=== PATIENT | male | born 1960 | race Caucasian/White ===

== ENCOUNTER 2023-07-05 02:22 | Observation (INO) | payer MEDICARE, OTHER, SELFPAY ==
[2023-07-04] VITALS (8 sets, daily range): BP systolic 112–144; BP diastolic 55–74; BMI 37.7
[2023-07-04 21:06] LABS: % Basophils 0.6 % (0-2); % Eosinophils 2.8 % (0-6); % Immature Granulocytes 0.3 % (0-0.5); % Monocytes 11.4 % (1.7-9.3); % Neutrophils 74.9 % (42.2-75.2); Absolute Basophils 0.1 10^3/uL (0-0.2); Absolute Eosinophils 0.3 10^3/uL (0-0.7); Absolute Monocytes 1.1 10^3/uL (0.1-0.6); Absolute Neutrophils 7.4 10^3/uL (1.4-6.5); Hematocrit 36.8 % (39.0-52.0); Hemoglobin 11.4 g/dL (13.0-18.0); Mean Corpuscular Hgb 25.4 pg (27.0-31.0); Mean Corpuscular Volume 82.1 fL (80.0-94.0); Mean Platelet Volume 8.7 fL (7.4-10.4); Nucleated Red Blood Cells % 0 % (-); Platelet Count 265 10^3/uL (130-400); Red Blood Cell Count 4.48 10^6/uL (4.70-6.10); Red Cell Dist. Width 14.6 % (11.5-14.5); White Blood Cell Count 9.9 10^3/uL (4.8-10.8)
[2023-07-04 21:18] LABS: ALT (SGPT) 11 U/L (0-50); AST (SGOT) 22 U/L (17-59); Albumin 4.3 g/dl (3.5-5.0); Alkaline Phosphatase 111 U/L (38-126); Blood Urea Nitrogen 13 mg/dl (9-20); Calcium 8.8 mg/dl (8.4-10.2); Carbon Dioxide 31 mmol/L (22-30); Chloride 99 mmol/L (98-107); Estimated Creatinine Clearance 85 ml/min; Glucose 99 mg/dl (70-99); Potassium 4.5 mmol/L (3.5-5.1); Sodium 134 mmol/L (135-145); Total Bilirubin 0.6 mg/dl (0.2-1.3); Total Protein 7.9 g/dl (6.3-8.2); eGFR > 60.00
[2023-07-04 21:31] LABS: Troponin I < 0.012 ng/ml
--- NOTE | 2023-07-04 22:29 | ED.GENMED ---
History of Present Illness
General
Chief Complaint: Chest Pain
Source: patient
Exam Limitations: none
Time Seen by Provider: 07/04/23 21:13
Travel History
Have you had any contact with someone who has COVID-19?: No
Do you have any symptoms of coronavirus? Fever > 100 degrees, chills, cough, shortness of breath, sore throat, loss of taste or smell, muscle aches, or headache?: Yes
Symptoms:: sob
History of Present Illness
History of Present Illness:
63-year-old male who presents after having chest pain around 2 or 3:00. Patient states he was shoveling snow. The pain was coming and going for several hours. He then went out to dinner with his daughter and when he came home did not feel well
and started vomiting. Daughter called 911. Patient states now feels better. He was given aspirin, nitroglycerin and Zofran by EMS. The pain did radiate to his back. He was feel little bit short of breath as well. He does continue to smoke. He
does have a history of coronary disease as well as ventricular tachycardia. No fevers. No palpitations.
Past History
Past History
ED Past Medical History: Arrthythmia (A-fib, ventricular tachycardia), CAD, COPD, GERD, HTN, Hypercholesterolemia, NIDDM, [place] (2008, 2015) and Other (Migraine headaches, tobacco abuse, ventricular tachycardia)
ED Past Surgical History: Cardiac (PTCA with stent to the LAD 2007, PACER) and Orthopedic (Right foot surgery 2016)
Patient has exhibited threatening behavior?: No
Social History
Tobacco: Smoker
Alcohol: None
Drug: Narcotics (inconsistent UDS (+)oxycodone 2014)
Personal:
Living: with family
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
Family History
Family History: Hypertension and Early CAD
Phy Exam
Physical Exam
Physical Exam:
CONSTITUTIONAL Patient alert and oriented to person, place and time. Obese. Vital signs reviewed.
HEAD atraumatic, normocephalic.
EYES eyelids normal to inspection, Pupils equally round and reactive to light, Extraocular muscles intact, Conjunctiva normal, Sclera normal.
NECK normal range of motion, Trachea midline, no jugular venous distention.
RESPIRATORY CHEST No respiratory distress noted, Chest expansion equal, wheezing bilaterally.
CARDIOVASCULAR regular rate and rhythm, Heart sounds normal.
ABDOMEN abdomen nontender, Bowel sounds normal. No distention.
BACK normal inspection, no obvious deformities
UPPER EXTREMITY range of motion normal, Motor strength normal, no cyanosis, no edema. Nicotine stains left hand
LOWER EXTREMITY range of motion normal, Motor strength normal, no cyanosis, no edema.
NEURO Speech normal, No focal motor deficits, Mikki coma scale 15, Memory normal, Cranial Nerves intact to screening exam.
SKIN skin warm, dry, and normal in color.
PSYCHIATRIC patient oriented to person place and time, Normal affect.
Scores
Heart Score for Chest Pain Patients
STEMI patient?: No
History: Moderately Suspicious
ECG: Nonspecific Repolarization
Age: >45 - <65 years
Risk Factors: >/= 3 Risk Factors or History of CAD
Troponin: </= Normal Limit
Heart Score for Chest Pain Patients: 5
Heart Score Risk: 20.3% MACE over next 6 weeks
Course
Orders/Labs/Results
Orders:
Orders
07/04/23 20:38
Electrocardiogram (*1) Urgent
Reason for Study: Chest Pain
Cardiac Monitoring- Treatment ONCE
EKG- Treatment ONCE
IV Insert/Care/Rem.- Treatment PRN
O2 Therapy [RESP] Urgent
Titrate/Wean O2 to maintain O2 sat greater than (%): 90
Special Instructions: Maintain sats >/=90%
Pulse Ox/spot Check [RESP] Urgent
Quantity: 1
Special Instructions: ON ROOM AIR
07/04/23 20:50
Complete Blood Count/With Diff Urgent
Comprehensive Metabolic Panel Urgent
Troponin I Urgent
07/04/23 21:57
CXR2 [CR Chest - 2 Views ] Urgent
Comment:
Reason For Exam: SOB
07/04/23 22:34
Electrocardiogram (*1) Stat
Reason for Study: Other
Other Reason for Exam: chest pain
EKG- Treatment ONCE
07/04/23 23:01
CT Angio Chest W/Wo Iv Contast [CT Chest Angio W/wo Iv Contras] Stat
Comment:
Reason For Exam: cp, back pain, r/o dissection
07/05/23 00:21
Dexamethasone Sod Phosphate [Decadron] 10 mg IV NOW STA
07/05/23 00:32
Troponin I Urgent
07/05/23 00:48
Ipratropium/Albuterol Sulfate [Duoneb] 3 ml INH R NOW STA
07/05/23 02:03
Admit/Transfer Patient As Directed
Co-Sign Provider:
Level of Care: Observation services
Assign to:: Telemetry
Physician / Group: [email or web address]
Diagnosis: exertional CP eval for ACS
Reason for Telemetry: Chest Pain syndromes
Date to Stop Telemetry: 07/07/23
Time to Stop Telemetry: 11:00
Reason for Hospitalization: exertional CP eval for ACS
Expected length of stay greater than two midnights?: Yes
07/05/23 02:06
Code Status As Directed
Resuscitation Status: Full Code
07/05/23 03:19
Electrocardiogram (*1) Q6H
Reason for Study: Chest Pain
Comment: at admission and Q3H for total of 3, to be done with each troponin
Albuterol [ProAIR HFA INHALER] 2 puff INH R Q4HPRN PRN
Dextrose 50%-Water [Dextrose 50% Syringe] 12.5 grams IV [id number] PRN
Glucagon [GlucaGen] 1 mg IM PRN PRN
Nitroglycerin Sublingual [Nitrostat (Sublingual)] 0.4 mg SL [id number] PRN
07/05/23 03:19
CARDIOLOGY CONSULT Routine
Consulting Provider: Elida Alejandra
Was physician already notified: No
Reason for consult: exertional CP eval for ACS
Consult Notification Routine
Specialty to Notify: Cardiology
Activity As Directed
Activity Level: With Assistance
Bedside Glucose Monitoring As Directed
Frequency: AC&HS
Comment: Change to q6h if pt on TPN, tube feeding or not eating
INT (Intravenous Needle Therapy) As Directed
Comment: maintain peripheral IV access
Intake/ Output As Directed
Frequency: Per unit guidelines
Vital Signs As Directed
Frequency: q4h
Weight As Directed
Frequency: Daily
07/05/23 04:29
Cardiovascular Evaluation IN AM
Complete Blood Count/No Diff IN AM
Comprehensive Metabolic Panel IN AM
Glycohemoglobin (HgbA1c) Routine
Troponin I Q3H
Comment: at admit & Q3H for 3 total including ED draws, obtain ECG with each level
07/05/23 Breakfast
Cholesterol Lowering
At Your Request: Limited Participation
Cholesterol Lowering: Sodium, 2 Gram
07/05/23 06:08
Troponin I Q3H
Comment: at admit & Q3H for 3 total including ED draws, obtain ECG with each level
07/05/23 07:30
Insulin Aspart Corrective Low [Novolog Flexpen-Low Resistance] See Protocol SC AC
07/05/23 08:00
Apixaban [Eliquis] 5 mg PO BID
Aspirin Chewable [Low Strength Aspirin] 81 mg PO DAILY
Atorvastatin [Lipitor] 80 mg PO DAILY
Budesonide/Formoterol 80/4.5 [Symbicort 80/4.5 Mcg Inhaler] 2 puff INH R BID
Candesartan Cilexetil [Atacand] 32 mg PO DAILY
Carvedilol [Coreg] 25 mg PO BID
Empagliflozin [Jardiance] 10 mg PO DAILY
Furosemide [Lasix] 20 mg PO DAILY
Metformin Extended Release [Glucophage Xr Extended Release] 1,000 mg PO BID@0800,1700
Minoxidil [Loniten] 10 mg PO BID
Pantoprazole [Protonix] 40 mg PO DAILY
Sotalol [Betapace] 80 mg PO BID
omeprazole 40 mg PO DAILY
07/05/23 09:19
Electrocardiogram (*1) Q6H
Reason for Study: Chest Pain
Comment: at admission and Q3H for total of 3, to be done with each troponin
Troponin I Q3H
Comment: at admit & Q3H for 3 total including ED draws, obtain ECG with each level
07/05/23 15:19
Electrocardiogram (*1) Q6H
Reason for Study: Chest Pain
Comment: at admission and Q3H for total of 3, to be done with each troponin
07/07/23 11:00
DC Protocol for Telemetry ONCE
Abnormal Lab Results
07/04/23
20:50
RBC 4.48 L 10^6/uL
(4.70-6.10)
Hgb 11.4 L g/dL
(13.0-18.0)
Hct 36.8 L %
(39.0-52.0)
MCH 25.4 L pg
(27.0-31.0)
MCHC 31.0 L g/dL
(33.0-37.0)
RDW 14.6 H %
(11.5-14.5)
Absolute Neuts (auto) 7.4 H 10^3/uL
(1.4-6.5)
Absolute Lymphs (auto) 1.0 L 10^3/uL
(1.2-3.4)
Absolute Monos (auto) 1.1 H 10^3/uL
(0.1-0.6)
Lymphocytes % 10.0 L %
(20.5-51.1)
Monocytes % 11.4 H %
(1.7-9.3)
Sodium 134 L mmol/L
(135-145)
Carbon Dioxide 31 H mmol/L
(22-30)
07/04/23 20:50
07/04/23 20:50
Vital Signs
Initial and Last Documented VS:
Initial Vital Signs
Pulse Resp Pulse Ox
64 15 95
07/04/23 20:40 07/04/23 20:40 07/04/23 20:40
Last Documented Vital Signs
Temp Pulse Resp BP Pulse Ox
98 F 60 18 155/66 92
07/05/23 03:20 07/05/23 03:20 07/05/23 03:20 07/05/23 03:20 07/05/23 03:20
MDM/Problems Addressed
MDM/Problems Addressed:
Chest pain, vomiting, tobacco abuse, reactive airway disease
*Radiology
Radiology exam reviewed: all reviewed NAD by ED Provider (Chest x-ray unremarkable)
*Pulse Oximetry
Patient hypoxic: no
*EKG
Interpreted by ED Provider?: Yes
Interpretation: abnormal
Rate: normal
Rhythm: sinus and PVC's
[place]: normal axis
Ischemia: no ischemia
*Chaplain Resident Interpretation
Rate: normal
Interpretation: normal
Rhythm: sinus
*Critical Care Note
Total Time (30-74mins, 75-104mins- exclusive of procedures): 30 minutes
Data Reviewed
Review of Other/Old Records Reveals: Progress Notes (Cardiology progress note from April 2022) and Discharge Summary (From April 2022)
Source: patient
Prescriptions/Medications Considered But Not Given:
Consider nitroglycerin but symptoms have not resolved
Patient Management
Discussion with other providers: Hospitalist
Escalation/DeEscalation of care consider admission/obs:
63-year-old male who presents with chest pain. Pain did radiate back and aortic dissection study negative. Given his extensive coronary history admitted for cardiac evaluation. In addition, patient is wheezing and I do suspect COPD exacerbation
as he is a longtime smoker. Bronchodilators with caution to avoid tachycardia in light of his recent chest pain. Admit
ED Attending Note
-
Portions of this chart may have been created with voice recognition software.� Occasional wrong word or��sound alike� substitutions may have occurred due to the inherent limitations of voice recognition software.
Discharge Plan
Departure
Patient Disposition: Admit
Date of Disposition: 07/05/23
Time of Disposition: 00:47
Admit to: Telemetry
Presentation/result/management discussed w/ accepting MD/DO: Hospitalist
Discharge Problem:
Chest pain, COPD exacerbation
Interventions
Interventions:
*Risk Screen - Suicide Last Done: 07/04/23 20:40
*General Assessment Last Done: 07/04/23 20:40
*Neglect/Abuse Screening Last Done: 07/04/23 20:40
*ED COVID-19 Vaccine History Last Done: 07/05/23 03:26
*Nursing Disposition Last Done: 07/05/23 03:20
ED- Cardiac Assessment Last Done: 07/04/23 21:30
Discharge Date and Time
Discharge Date/Time: 07/05/23 03:20
[2023-07-05] VITALS (8 sets, daily range): BP systolic 125–167; BP diastolic 51–73; BMI 35.9
[2023-07-05] MEDS: DECADRON 10 MG IV (00:33)
[2023-07-05] MEDS: DUONEB 3 ML INH ×3 (00:56→19:39)
[2023-07-05 01:12] LABS: Troponin I < 0.012 ng/ml
--- NOTE | 2023-07-05 01:59 | HPS.HSE ---
Family Physician
-
Family Physician: [place]
Chief Complaint
-
CP
History of Present Illness
61M current smoker, diabetic HX COPD, HTN, GERD, HLD, [place] 2007 2014 chronic HFpEF, CAD s/p stent, HX VF arrest, AICD pw chest pain while he was shoveling snow. The pain was coming and going for several hours. He then went out to dinner with his
daughter and when he came home did not feel well and started vomiting. Daughter called 911. Patient states now feels better. He was given aspirin, nitroglycerin and Zofran by EMS. The pain did radiate to his back. He was feel little bit short
of breath as well.
Medical History
Past Medical History
Past Medical History: Reports Other
Additional Past Medical History:
Arrthythmia (A-fib, ventricular tachycardia), CAD, COPD, GERD, HTN, Hypercholesterolemia, NIDDM, [place] (2007, 2014) and Other (Migraine headaches, tobacco abuse, ventricular tachycardia)
Past Surgical History: Reports Other
Additional Past Surgical History:
Cardiac (PTCA with stent to the LAD 2007, PACER) and Orthopedic (Right foot surgery 2016)
Social History
Tobacco: Smoker
Alcohol: None
Drug: None
Family History
Family History: Not pertinent
Allergies / Home Medications
Allergies reflects when Allergies were last updated in [facility].
Home Medications with original date entered in [facility]
Allergy/Medication List:
Allergies
Allergy/AdvReac Type Severity Reaction Status Date / Time
diphenhydramine Allergy hyperactivi Verified 07/04/23 20:46
[Diphenhydramine] ty
sumatriptan Allergy PALPITATIONS, Verified 07/04/23 20:46
HTN
Home Medications
albuterol sulfate 90 mcg/actuation aerosol inhaler (Ventolin HFA) 2 puff inhalation Q4HPRN PRN sob 09/28/14
carvedilol 25 mg tablet 25 mg PO BID ##60 09/30/14
furosemide 20 mg tablet 20 mg PO DAILY 06/11/17
nitroglycerin 0.4 mg sublingual tablet 0.4 mg sublingual [id number] PRN chest pain #25 tabs 06/12/17
omeprazole 40 mg capsule,delayed release 40 mg PO DAILY 06/12/17
atorvastatin 80 mg tablet 80 mg PO DAILY 05/15/22
candesartan 16 mg tablet 32 mg PO DAILY 05/15/22
metformin 500 mg tablet,extended release 24 hr 1,000 mg PO BID@0800,1700 05/15/22
apixaban 5 mg tablet (Eliquis) 5 mg PO BID 30 days #60 tabs 05/17/22
empagliflozin 10 mg tablet (Jardiance) 10 mg PO DAILY 30 days #30 tabs 05/17/22
minoxidil 10 mg tablet 10 mg PO BID 06/06/22
fluticasone fur. 100 mcg-umeclid 62.5 mcg-vilant 25 mcg inhalat.powder (Trelegy Ellipta) 1 inh inhalation DAILY 07/04/23
omeprazole 40 mg capsule,delayed release 40 mg PO DAILY 07/04/23
sotalol 80 mg tablet 80 mg PO BID 07/04/23
Review of Systems
-
Constitutional: Reports No Symptoms
EENT: Reports No Symptoms
Respiratory: Reports No Symptoms
Cardiac: Reports Chest Pain
Abdomen/GI: Reports No Symptoms
: Reports No Symptoms
Musculoskeletal: Reports No Symptoms
Skin: Reports No Symptoms
Neurological: Reports No Symptoms
Endocrine: Reports No Symptoms
Hematologic/Lymphatic: Reports No Symptoms
Psych: Reports No Symptoms
Physical Exam
Vital Signs
Vital Signs
Pulse Resp BP Pulse Ox
59 14 137/74 100
07/04/23 22:00 07/04/23 22:00 07/04/23 22:40 07/04/23 22:00
Physical Exam
General: Other (see below )
Laboratory Results
-
07/04/23 20:50
07/04/23 20:50
Laboratory Results
Total Bilirubin 0.6 mg/dl (0.2-1.3) 07/04/23 20:50
AST 22 U/L (17-59) 07/04/23 20:50
ALT 11 U/L (0-50) 07/04/23 20:50
Alkaline Phosphatase 111 U/L (38-126) 07/04/23 20:50
Troponin I < 0.012 ng/ml 07/05/23 00:32
Data Reviewed
-
CT Scan: Report Reviewed by me
Lab Data: Labs Reviewed by me
Old Records: Reviewed
Impression/Plan
-
Reviewed VS: noted HR low 60s. Normotensive
PE
Gen: obese
HEENT: anicteric
Neck: supple
Lungs: b/l wheeze noted
Cor: RRR S1 S2
Abdomen: soft NT NG NRT
MARKETING CONSULTANT: AAO3
MS: no peripheral edema
Psych: normal affect.
Data
WCC 9.9
Hgb 11.4 - baseline hi 11s
Na 134
CO2 31
Cr 1.1 eGFR > 60
nl LFTs
NEG TPNI
EKG report
NORMAL SINUS RHYTHM
NORMAL ECG
WHEN COMPARED WITH ECG OF 04-JUL-2023 20:52,
PREMATURE VENTRICULAR COMPLEXES ARE NO LONGER PRESENT
CTA chest
NEG for central PE
No focal air space consolidation
Last hospitalist admission: 05/15/22 - 05/18 23
P Dxs
AF with RVR
VF
Acute on chr HFpEF
ASSESSMENT & PLAN
Exertional CP - Eval for ACS / [place]
Currently CP free- s/pASA nitroglycerin and Zofran by EMS.
Extensive Card HX est ASCVD9 [place], CAD with stents
HX Cath with stable CAD from 2018, LAD stent still patent
HLD
- cont ASA
- cont hi intensity Atorvastatin
- trend TPNI
- CBC card consult
HX chronic HFpEF - with HX elevated LVEDP/YOUNG
- on DESKTOP ARCHITECT SGLT2-I - Empagliflozin 10mg daily
- cont DESKTOP ARCHITECT Frusemide PO 20mg daily
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 Each episode terminated with 1 ICD shock but he had 10 episodes over about 6 min.
HX out of hospital arrest in 2018 when ICD placed
- on sotalol
- on Carvedilol
- on Candesartan
HX Prox AFib- In NSR
HX [id number] at least 4 (heart failure, HTN, DM, Vascular disease)
- cont. Eliquis
- on Sotalol
HX COPD
- on Trelegy Ellipta
DMT2
- on Metformin and SGLT2-I (Empagliflozin )
- add ISS low
essential HTN on Carvedilol
Hx migraines
Heavy active smoker, told to quit
Class II Morbid obesity, BMI 39.9
DVT Px: on chr Eliquis
Code: Full
IP TLM
[2023-07-05 04:37] LABS: Hematocrit 37.9 % (39.0-52.0); Hemoglobin 11.9 g/dL (13.0-18.0); Mean Corp Hgb Conc. 31.4 g/dL (33.0-37.0); Mean Corpuscular Hgb 25.8 pg (27.0-31.0); Mean Platelet Volume 8.8 fL (7.4-10.4); Platelet Count 260 10^3/uL (130-400); Red Blood Cell Count 4.62 10^6/uL (4.70-6.10); Red Cell Dist. Width 14.6 % (11.5-14.5); White Blood Cell Count 8.9 10^3/uL (4.8-10.8)
[2023-07-05] MEDS: FIORICET 1 TAB PO ×2 (04:59→21:34)
[2023-07-05] MEDS: TYLENOL #3 1 TABLET PO (05:00)
--- NOTE | 2023-07-05 05:00 | PTCARENOTE ---
0330 Received patient from ED via stretcher. Patient ambulated from stretcher to bed independently. Oriented patient to room and placed call ibarra within reach. No complaints of chest pain. Patient reports 5/10 migraine headache. COMMUNICATIONS PROFESSIONAL made aware,
fioricet and tylenol #3 ordered and given to patient.
[2023-07-05 05:03] LABS: ALT (SGPT) 12 U/L (0-50); AST (SGOT) 19 U/L (17-59); Albumin 3.9 g/dl (3.5-5.0); Alkaline Phosphatase 110 U/L (38-126); Blood Urea Nitrogen 15 mg/dl (9-20); Carbon Dioxide 29 mmol/L (22-30); Chloride 97 mmol/L (98-107); Estimated Creatinine Clearance 83 ml/min; Glucose 165 mg/dl (70-99); HDL Cholesterol 28 mg/dl; LDL Cholesterol, Calculated 31 mg/dl; Potassium 5.1 mmol/L (3.5-5.1); Sodium 134 mmol/L (135-145); Total Bilirubin 0.6 mg/dl (0.2-1.3); Total Cholesterol 93 mg/dl (50-199); Total Protein 7.7 g/dl (6.3-8.2); Triglyceride 171 mg/dl (10-149); Very Low Density Lipoprotein 34 mg/dl (0-30); eGFR > 60.00
[2023-07-05 05:13] LABS: Troponin I < 0.012 ng/ml
[2023-07-05 06:41] LABS: Troponin I < 0.012 ng/ml
[2023-07-05 07:20] LABS: Glucose - Point of Care 177 mg/dl (70-99)
[2023-07-05] MEDS: NOVOLOG FLEXPEN-LOW RESISTANCE 1 UNITS SC ×2 (09:28→12:23)
[2023-07-05] MEDS: BETAPACE 80 MG PO ×2 (09:29→21:08)
[2023-07-05] MEDS: SYMBICORT 80/4.5 MCG INHALER INH (09:29)
[2023-07-05] MEDS: ATACAND 32 MG PO (09:29)
[2023-07-05] MEDS: PROTONIX 40 MG PO (09:29)
[2023-07-05] MEDS: COREG 25 MG PO ×2 (09:30→21:09)
[2023-07-05] MEDS: GLUCOPHAGE XR EXTENDED RELEASE 1000 MG PO ×2 (09:30→17:18)
[2023-07-05] MEDS: LIPITOR 80 MG PO (09:30)
[2023-07-05] MEDS: JARDIANCE 10 MG PO (09:30)
[2023-07-05] MEDS: LONITEN 10 MG PO ×2 (09:31→21:09)
[2023-07-05] MEDS: LOW STRENGTH ASPIRIN 81 MG PO (09:31)
[2023-07-05] MEDS: LASIX 20 MG PO (09:31)
[2023-07-05] MEDS: ELIQUIS 5 MG PO ×2 (09:31→21:09)
[2023-07-05 10:01] LABS: Troponin I < 0.012 ng/ml
[2023-07-05 10:26] LABS: Glycohemoglobin (HgbA1c) 6.7 % (4.0-5.6)
--- NOTE | 2023-07-05 11:29 | CON.CAR ---
Consultation
Consultation Request
Date/Time Consultation Requested: 07/05/23
Date/Time Consultation Performed: 07/05/23
Requesting Provider: Dr Escobar
Performing Provider: Dr Ratliff (primary nut tightener Dr Ventura(to become Gianni)
Reason for Consultation: chest pain
Medical History
-
Chief Complaint: chest pain
History of Present Illness:
63-year-old male with CAD, hypertension, resolved cardiomyopathy now EF 60 to 65%, ventricular tachycardia s/p [employer] ICD, Recurrent VF in initially managed with Amiodarone then transitioned to Sotalol given COPD, paroxysmal atrial
fibrillation on Eliquis, obesity, and ongoing smoking.Today his daughter is at the bedside and adds to the history. Yesterday morning he cleaned off his car and did a little bit of shoveling. With this he reports increased shortness of breath, but
no real chest pain. He then went to dinner with his daughter and on the way home felt increasing shortness of breath. This was associated with wheezing. At time he had intermittent sharp chest pain radiating to the back. This was not reminiscent
of prior angina. Given his history he never knows when he should be concerned. He sought care. In the ED he had a CTA showing no evidence of dissection or PE. He had troponins that have been cycled 5 times in the last 12 to 24 hours that are all
negative. His weight is stable from his last outpatient visit on the fifth with Dr. Ventura. He has no orthopnea or PND. No lower extremity swelling.
Past Medical History
Past Medical History: Arrhythmias (VT, FIT, A-fib Status post ICD), CAD (PCI to LAD), CHF, COPD, HTN and Hypercholesterolemia
Social History
Tobacco: Smoker
Living: With Family
Family History
Family History: Reviewed & Not Pertinent
Allergies / Home Medications
Allergy/AdvReac Type Severity Reaction Status Date / Time
diphenhydramine Allergy hyperactivi Verified 07/04/23 20:46
[Diphenhydramine] ty
sumatriptan Allergy PALPITATIONS, Verified 07/04/23 20:46
HTN
Medication Instructions Recorded Confirmed Type
albuterol sulfate 90 mcg/actuation 2 puff inhalation Q4HPRN PRN sob 09/28/14 07/04/23 History
aerosol inhaler (Ventolin HFA)
carvedilol 25 mg tablet 25 mg PO BID ##60 09/30/14 07/04/23 Rx
furosemide 20 mg tablet 20 mg PO DAILY 06/11/17 07/04/23 History
nitroglycerin 0.4 mg sublingual 0.4 mg sublingual [id number] PRN 06/12/17 07/04/23 Rx
tablet chest pain #25 tabs
omeprazole 40 mg capsule,delayed 40 mg PO DAILY 06/12/17 07/04/23 History
release
atorvastatin 80 mg tablet 80 mg PO DAILY 05/15/22 07/04/23 History
candesartan 16 mg tablet 32 mg PO DAILY 05/15/22 07/04/23 History
metformin 500 mg tablet,extended 1,000 mg PO BID@0800,1700 05/15/22 07/04/23 History
release 24 hr
apixaban 5 mg tablet (Eliquis) 5 mg PO BID 30 days #60 tabs 05/17/22 07/04/23 Rx
minoxidil 10 mg tablet 20 mg PO BID 06/06/22 07/05/23 History
fluticasone fur. 100 mcg-umeclid 1 inh inhalation DAILY 07/04/23 07/04/23 History
62.5 mcg-vilant 25 mcg
inhalat.powder (Trelegy Ellipta)
omeprazole 40 mg capsule,delayed 40 mg PO DAILY 07/04/23 07/04/23 History
release
sotalol 80 mg tablet 80 mg PO BID 07/04/23 07/04/23 History
butalbital 50 mg-acetaminophen 325 2 cap PO Q4H PRN migraine 07/05/23 07/05/23 History
mg-caffeine 40 mg-codeine 30 mg cap
empagliflozin 25 mg tablet 25 mg PO DAILY 07/05/23 07/05/23 History
(Jardiance)
Review of Systems
-
All other systems: Negative unless noted
Physical Exam
Vital Signs
Temp Pulse Resp BP Pulse Ox
97.6 F 64 18 167/73 96
07/05/23 11:08 07/05/23 11:08 07/05/23 11:08 07/05/23 11:08 07/05/23 11:08
Lab Results
07/05/23 04:29
07/05/23 04:29
Troponin I < 0.012 ng/ml 07/05/23 09:23
Physical Exam
General: Well Developed, Well Nourished and No Apparent Distress
Respiratory: Wheezes (faint Diffuse end expiratory ), Crackles (None), Rhonchi (None) and Non Labored Respirations
Cardiac: S1/S2, Regular Rhythm, Murmur (None), Rub (None) and Peripheral Edema (None)
GI: Soft
Musculoskeletal: No Clubbing, No Cyanosis and No Edema
Neuro: AO x 3
Impression / Plan
-
Impression:63-year-old male with a history of CAD, PCI to the LAD, VT/V-fib status post ICD, ongoing smoking and COPD presents with increasing shortness of breath and wheezing yesterday with a sharp chest pain rating to the back at times.
Chest pain:
-Trop negative x5
-CP atypical
-do not suspect cardiac etiology
COPD:
-increased sob and wheezing with increased neb use, sx likely attributable to COPD
CAD:
-Stable continue current medications
- Cath 05/08/2022 stable CAD from 2018, LAD stent still patent
h/o VT/VF arrest
-continue sotalol
-ICD inplace
HFpEF: chronic
-Euvolemic
-wt stable from last op visit on 06/22/[address] Ventura
-Continue current medications
PAF:
-In NSR
-on Sotalol
- [id number] at least 4 (heart failure, HTN, DM, Vascular disease)
Smoker: needs to quit and advised to do so
DM
HTN chronic
Hx migraines
LVH with asymmetric septal hypertrophy but no LVOT gradient noted
Morbid obesity, BMI 35.9
Data
CTA 07/05/23:
CONCLUSION:
1. � Technically limited examination. No central pulmonary embolism.
2. � No aortic dissection or aneurysm.
3. � Borderline cardiomegaly.
4. � No pleural or pericardial effusion.
5. � Increased bilateral hilar and mediastinal adenopathy. While this could be due to chronic airway inflammation or infection, the differential includes the possibility of sarcoidosis, neoplasm, benign or malignant, short-term follow-up is
recommended.
6. � Circumferential thickening of the distal esophagus. Follow-up with direct visualization or esophagram may be helpful to fully evaluate.
7. � Possible duodenal diverticulum or lipoma. Incompletely imaged.
CATH 05/15/22:
HEMODYNAMIC DATA
AO: 146/69
LV: 146/21
-
LEFT VENTRICULOGRAPHY: Akinesis of the inferobasal with otherwise normal wall motion.� An ejection fraction could not be calculated due to ventricular ectopy.� Of note the inferobasal akinetic segment is unchanged in appearance going back to the
2018 study
-
CORONARY ANGIOGRAPHY
Dominance: Left
Left Main: Normal
LAD: Widely patent proximal to mid LAD stent.� The major diagonal branch has 40% ostial stenosis unchanged in appearance compared with the prior study from 2018.� The remainder of the LAD system has mild luminal irregularities
Circumflex: The circumflex is dominant with 20-30% proximal stenosis.� The distal circumflex is occluded past the takeoff of the huge OM1 and small OM 2.� OM 2 has diffuse and severe disease..� Left to left collaterals faintly fill the OM 3, small
LPL, and small L PDA vessels.� The appearance of the circumflex is unchanged compared with the prior study from 2018.
RCA: Nondominant vessel with diffuse mild disease.
TTE: 05.15.22:
CONCLUSIONS
�Normal biventricular size and systolic function without regional wall motion
�abnormality. Estimated LVEF 60-65%.
�Asymmetric septal hypertrophy: IVS 1.5 cm, LVPW 1.1 cm.
�Stage II diastolic dysfunction suggestive of abnormal relaxation and increased
�filling pressures.
�Mild aortic stenosis.
�Mild tricuspid regurgitation. Moderately elevated PASP. Estimated pulmonary
�artery pressure of 48 mmHg.
�Compared to 10/15/18: no significant change.
Data Reviewed
-
EKG: Tracing Personally Visualized and interpreted (Sinus bardycardia with NS IVCD, QTC [address]ressions anterolaterally improved. )
Labs: Discussed with Physician (Dr Escobar don't suspect acute cardiac issue, will sign off)
[2023-07-05 11:49] LABS: Glucose - Point of Care 171 mg/dl (70-99)
--- NOTE | 2023-07-05 12:07 | W.PN.UPDATE ---
Addendum entered and electronically signed by Dinesh Escobar MD 07/05/23 12:41:
Discussed with cardiology. noncardiac chest pain chest and discomfort. In setting of active tobacco abuse and hypoxemia will start patient on steroids and DuoNebs
Original Note:
Update Note
Progress Note Update
Seen and examined. Overnight physician. Currently patient denies any chest pain. States chest pain started after shoveling snow. States he continues to smoke. Smokes 1-1/2 pack/day sometimes less. Currently chest pain-free. Denies cough.
General in no acute distress
Cardiac S1-S2
Pulmonary decreased breath sounds, no severe wheezing
Abdomen positive bowel sounds nontender nondistended
Extremities no edema
Angina likely unstable
CAD status post stents
Currently CP free- s/pASA� nitroglycerin and Zofran by EMS.
HLD
-cont ASA
-cont hi intensity Atorvastatin
-Fortunately troponin has remained negative/flat
-Cardiac catheterization 05/08
-Check ECHO in am.
-CBC card consulted�
chronic HFpEF - with HX elevated LVEDP/YOUNG
- on CARTOGRAPHY/MAPPING TECHNICIAN SGLT2-I - Empagliflozin 10mg daily
- cont CARTOGRAPHY/MAPPING TECHNICIAN Frusemide PO 20mg daily
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 Each episode terminated with 1 ICD shock but he had 10 episodes over about 6 min.
HX out of hospital arrest in 2018 when ICD placed
- on� sotalol
- on Carvedilol
- on Candesartan
Paroxysmal AFib- In� NSR
HX [id number] at least 4 (heart failure, HTN, DM, Vascular disease)
- cont. Eliquis
- on Sotalol
COPD
- on Trelegy Ellipta
DMT2
- on Metformin and� SGLT2-I (Empagliflozin )
- add ISS low
essential HTN on Carvedilol
Hx migraines
Active tobacco abuse
Refused patch. Does not want to quit. Counseled on cessation.
Class II Morbid obesity, BMI 39.9
DVT Px: on chr Eliquis
Code: Full
[2023-07-05] MEDS: DECADRON 6 MG IV (13:39)
[2023-07-05 16:53] LABS: Glucose - Point of Care 254 mg/dl (70-99)
[2023-07-05] MEDS: NOVOLOG FLEXPEN-LOW RESISTANCE 3 UNITS SC (17:19)
[2023-07-05] MEDS: SYMBICORT 80/4.5 MCG INHALER 2 PUFF INH (19:40)
[2023-07-05 21:21] LABS: Glucose - Point of Care 174 mg/dl (70-99)
[2023-07-06] MEDS: DECADRON 6 MG IV ×2 (01:14→12:07)
[2023-07-06 03:10] VITALS: BP 143/62
[2023-07-06] MEDS: FIORICET 1 TAB PO ×2 (03:34→09:46)
[2023-07-06 06:00] VITALS: BMI 36.5
--- NOTE | 2023-07-06 06:40 | PTCARENOTE ---
Patient with bradycardia overnight, HR ranging from 30s-50s. Patient resting comfortably, no complaints. GENERAL PASSENGER AGENT made aware, no new orders at this time.
[2023-07-06 07:10] VITALS: BP 155/65
[2023-07-06 07:24] LABS: Glucose - Point of Care 181 mg/dl (70-99)
[2023-07-06] MEDS: DUONEB 3 ML INH ×2 (07:28→13:41)
[2023-07-06] MEDS: SYMBICORT 80/4.5 MCG INHALER 2 PUFF INH (07:28)
[2023-07-06 08:39] LABS: % Basophils 0.2 % (0-2); % Immature Granulocytes 0.9 % (0-0.5); % Lymphocytes 12.9 % (20.5-51.1); % Monocytes 6.2 % (1.7-9.3); % Neutrophils 79.8 % (42.2-75.2); Absolute Lymphocytes 0.6 10^3/uL (1.2-3.4); Absolute Monocytes 0.3 10^3/uL (0.1-0.6); Absolute Neutrophils 3.5 10^3/uL (1.4-6.5); Hematocrit 34.1 % (39.0-52.0); Hemoglobin 10.7 g/dL (13.0-18.0); Mean Corp Hgb Conc. 31.4 g/dL (33.0-37.0); Mean Corpuscular Hgb 25.1 pg (27.0-31.0); Mean Platelet Volume 9.6 fL (7.4-10.4); Nucleated Red Blood Cells % 0 % (-); Platelet Count 274 10^3/uL (130-400); Red Blood Cell Count 4.26 10^6/uL (4.70-6.10); Red Cell Dist. Width 14.6 % (11.5-14.5); White Blood Cell Count 4.3 10^3/uL (4.8-10.8)
[2023-07-06 09:19] LABS: Blood Urea Nitrogen 20 mg/dl (9-20); Calcium 8.9 mg/dl (8.4-10.2); Carbon Dioxide 26 mmol/L (22-30); Chloride 94 mmol/L (98-107); Estimated Creatinine Clearance 102 ml/min; Glucose 191 mg/dl (70-99); Potassium 4.9 mmol/L (3.5-5.1); Sodium 131 mmol/L (135-145); eGFR > 60.00
--- NOTE | 2023-07-06 09:30 | PTCARENOTE ---
HR currently 57 S.Randy. Dropping to 39 overnight. Confirmed with cardiology administration of all cardiac medications is appropriate.
--- NOTE | 2023-07-06 09:33 | W.PN.HOSP.TC ---
Addendum entered and electronically signed by Yasmani Torres DO 07/06/23 13:53:
Ambulatory pulse ox over 88% on room air. Stable for discharge. Outpatient follow-up recommended.
Original Note:
Today's Communication/Plan
-
Ambulatory pulse ox on room air
Possible discharge
Assessment / Plan
Assessment / Plan
Gen-AAOx3, NAD
HEENT-NC, AT, anicteric, clear oral mm
Neck-supple
CV-reg, no M, +S1/S2
Lungs-clear B/L
Abd-soft, NT, ND
Ext-no edema
Musculoskeletal-no cyanosis, clubbing
Skin-warm and dry
Neuro-grossly non-focal
Psych-calm, cooperative
Acute hypoxic respiratory insufficiency -due to acute COPD exacerbation. Oxygenation improved, now on room air.
Acute COPD exacerbation -improving. Check walking pulse ox on room air. Patient requesting discharge. Continue inhalers, discharge on steroids.
Atypical chest pain -troponins negative. Suspect noncardiac chest pain.
Hyponatremia -sodium 131 today. Fluid restriction.
Hyperlipidemia -continue atorvastatin.
DM2 with hyperglycemia -glucose 191 this morning. Hemoglobin A1c 6.7%. At home he is on Jardiance, metformin.
Paroxysmal atrial fibrillation -continue Eliquis, sotalol.
History of V-fib arrest -has ICD.
Essential hypertension
tobacco dependence
Obesity due to excess calories
Full code
Dispo -possible discharge after ambulatory pulse ox on room air. Outpatient follow-up. He does not have a java programmer, will refer to pulmonary here in [place].
Anticipated Discharge: Today
Subjective/Interval History
-
Date of Service: July 06, 2023
Patient seen and examined. Feeling better. Denies shortness of breath.
Objective Data
-
Labs:
Laboratory Results
07/06/23
07:15
WBC 4.3 L
Hgb 10.7 L
Hct 34.1 L
Plt Count 274
Sodium 131 L
Potassium 4.9
Chloride 94 L
Carbon Dioxide 26
BUN 20
Creatinine 0.9
Glucose 191 H
Calcium 8.9
Vital Signs:
Vital Signs
Temp Pulse Resp BP Pulse Ox
97.5 F 48 18 155/65 93
07/06/23 07:10 07/06/23 07:31 07/06/23 07:31 07/06/23 07:10 07/06/23 08:04
I&O
07/05/23 07/06/23 07/07/23
06:59 06:59 06:59
Intake Total 0 / 0 1560 / 1560
Balance 0 / 0 1560 / 1560
Review of Systems
-
History Source: Patient
All other systems: Reviewed and negative
[2023-07-06] MEDS: LOW STRENGTH ASPIRIN 81 MG PO (09:36)
[2023-07-06] MEDS: GLUCOPHAGE XR EXTENDED RELEASE 1000 MG PO (09:36)
[2023-07-06] MEDS: LIPITOR 80 MG PO (09:36)
[2023-07-06] MEDS: BETAPACE 80 MG PO (09:36)
[2023-07-06] MEDS: ELIQUIS 5 MG PO (09:36)
[2023-07-06] MEDS: NOVOLOG FLEXPEN-LOW RESISTANCE 1 UNITS SC (09:36)
[2023-07-06] MEDS: LONITEN 10 MG PO (09:37)
[2023-07-06] MEDS: LASIX 20 MG PO (09:37)
[2023-07-06] MEDS: COREG 25 MG PO (09:37)
[2023-07-06] MEDS: ATACAND 32 MG PO (09:37)
[2023-07-06] MEDS: PROTONIX 40 MG PO (09:37)
[2023-07-06] MEDS: JARDIANCE 10 MG PO (09:37)
--- NOTE | 2023-07-06 09:42 | W.DS.TRANS ---
Addendum entered and electronically signed by Teo Stone MD 07/07/23 17:42:
As noted on discharge summary was told to take aspirin and Eliquis on further conversation with cardiology and Dr. Ratliff no criteria to continue on aspirin and Eliquis together spoke to the patient by phone as cross cover to relay to him that
he is not to take aspirin therapy ongoing. He had already raise suspicions on that and had stopped it on his own at time of discharge reinforced the need to only take Eliquis going forward.
Original Note:
DC Summary - Radio Interference Supervisor
-
Discharge Instructions:
Sleep Apnea Risk High
Discharge Diagnosis/Procedures COPD exacerbation
Diet Diabetic, Carb Controlled,Restrict fluids to 48
oz
Activity As tolerated
Driving Restrictions As prior to admission
Bathing Restrictions None
Instructions:
Stand-Alone Forms:
Changes to Home Medications: No
Discharge Medications:
DC Medications w/original date entered in [employer]
albuterol sulfate 90 mcg/actuation aerosol inhaler (Ventolin HFA) 2 puff inhalation Q4HPRN PRN sob 09/28/14
carvedilol 25 mg tablet 25 mg PO BID ##60 09/30/14
furosemide 20 mg tablet 20 mg PO DAILY 06/11/17
nitroglycerin 0.4 mg sublingual tablet 0.4 mg sublingual [id number] PRN chest pain #25 tabs 06/12/17
omeprazole 40 mg capsule,delayed release 40 mg PO DAILY 06/12/17
atorvastatin 80 mg tablet 80 mg PO DAILY 05/15/22
candesartan 16 mg tablet 32 mg PO DAILY 05/15/22
metformin 500 mg tablet,extended release 24 hr 1,000 mg PO BID@0800,1700 05/15/22
apixaban 5 mg tablet (Eliquis) 5 mg PO BID 30 days #60 tabs 05/17/22
minoxidil 10 mg tablet 20 mg PO BID 06/06/22
fluticasone fur. 100 mcg-umeclid 62.5 mcg-vilant 25 mcg inhalat.powder (Trelegy Ellipta) 1 inh inhalation DAILY 07/04/23
omeprazole 40 mg capsule,delayed release 40 mg PO DAILY 07/04/23
sotalol 80 mg tablet 80 mg PO BID 07/04/23
butalbital 50 mg-acetaminophen 325 mg-caffeine 40 mg-codeine 30 mg cap 2 cap PO Q4H PRN migraine 07/05/23
empagliflozin 25 mg tablet (Jardiance) 25 mg PO DAILY 07/05/23
aspirin 81 mg chewable tablet (Children's Aspirin) 81 mg PO DAILY #0 tabs 07/06/23
prednisone 10 mg tablet 10 mg PO DIRECTED #30 tabs 07/06/23
Home Medication Changes
Pending Results: No
--- NOTE | 2023-07-06 10:57 | CM ---
Cm met with pt bedside
Pt resides with his son in a 2SH with 2STE
Full flight to second floor
Pt is independent with his ADLs
use of SPC PRN
PCP- [facility]
Rx- [facility]
Anticipate dc today
Per home O2 eval, no need home oxygen needs
Pt is OBS- FAGAN verbally reviewed
Copy provided
Discharge Disposition- home, no needs- family transport
[2023-07-06 11:10] VITALS: BP 135/65
[2023-07-06 11:14] LABS: Glucose - Point of Care 221 mg/dl (70-99)
[2023-07-06] MEDS: NOVOLOG FLEXPEN-LOW RESISTANCE 2 UNITS SC (12:10)
== END 2023-07-06 15:32 | disposition home or self-care (01) ==
LOC: 4 EAST ACU 02:22
PROVIDERS: Emergency Medicine; Hospitalist; ADMITTING PHYSICIAN Internal Medicine; ATTENDING PHYSICIAN Hospitalist; EMERGENCY PHYSICIAN Emergency Medicine; FAMILY PHYSICIAN Internal Medicine; OTHER PHYSICIAN Internal Medicine Cardiovascular Disease
DX: J44.1 Chronic obstructive pulmonary disease with (acute) exacerbation (principal); R09.02 Hypoxemia; R06.89 Other abnormalities of breathing; R07.89 Other chest pain; R11.2 Nausea with vomiting, unspecified; E87.1 Hypo-osmolality and hyponatremia; R06.02 Shortness of breath; E78.5 Hyperlipidemia, unspecified; E11.65 Type 2 diabetes mellitus with hyperglycemia; I47.20 Ventricular tachycardia, unspecified; I25.10 Atherosclerotic heart disease of native coronary artery without angina pectoris; F17.200 Nicotine dependence, unspecified, uncomplicated; I50.32 Chronic diastolic (congestive) heart failure; K21.9 Gastro-esophageal reflux disease without esophagitis; I48.0 Paroxysmal atrial fibrillation; E66.01 Morbid (severe) obesity due to excess calories; I11.0 Hypertensive heart disease with heart failure; E78.00 Pure hypercholesterolemia, unspecified; I25.2 Old myocardial infarction; G43.909 Migraine, unspecified, not intractable, without status migrainosus; Z95.5 Presence of coronary angioplasty implant and graft; Z86.74 Personal history of sudden cardiac arrest; Z95.810 Presence of automatic (implantable) cardiac defibrillator; Z88.8 Allergy status to other drugs, medicaments and biological substances; Z79.84 Long term (current) use of oral hypoglycemic drugs; Z79.51 Long term (current) use of inhaled steroids; Z68.39 Body mass index [BMI] 39.0-39.9, adult; Z90.49 Acquired absence of other specified parts of digestive tract
CPT/HCPCS: 71046; 71275; 80048; 80053; 80061; 82962; 83036; 84484; 85025; 85027; 93005; 94640; 96374; 99291; 99406; G0378; Q9967

== ENCOUNTER 2024-04-19 19:56 | Inpatient (IN) | payer MEDICARE, OTHER, SELFPAY ==
[2024-04-19] VITALS (29 sets, daily range): BP systolic 78–142; BP diastolic 53–119; BMI 33.5
--- NOTE | 2024-04-19 14:58 | ED.GENMED ---
ED Provider Triage
<Nava Crocker PA-C - Last Filed: 04/19/24 15:03>
-
Patient seen by provider in Triage?: Seen in Triage
Attestation: A medical screening examination has been initiated by a qualified medical provider. Based on the assessment performed at this time, it has been determined that an emergent medical condition may exist and the patient has been informed
that further medical evaluation and possible additional diagnostic testing may be needed.
HPI: 63yoM here low blood pressure. Took home BP meds like normal around 10:30am. Started to feel lightheaded 1 hour later. BP 108/60s and 88/56 at home. Also c/o a weird feeling in the chest.
GENERAL: Alert , in no apparent distress
EYE: No visual abnormalities.
NECK: Trachea midline
ENT: No visible abnormalities.
LUNGS: No acute respiratory distress
NEUROLOGICAL: Alert and oriented
SKIN: Skin intact. No visible changes.
MUSCULOSKELETAL: Moving extremities normally
PSYCH: Normal and appropriate interaction.
This is a medical evaluation conducted in person to initiate diagnostic evaluation and provide initial therapeutics. Please see further documentation by the treating clinician.
BP 93/63 in triage. Cardiac labs and EKG ordered.
History of Present Illness
<Nava Crocker PA-C - Last Filed: 04/19/24 15:03>
General
Chief Complaint: Blood Pressure Problem
Time Seen by Provider: 04/19/24 15:55
<Barrington Osullivan DO - Last Filed: 04/20/24 20:20>
General
Source: patient and family
History of Present Illness
History of Present Illness:
63-year-old gentleman presents to the emergency room complaining of feeling dizzy, and unusual sensation in his chest and having low blood pressure measurements at home. Patient began feeling the symptoms today. He does have a complex medical
history and has a ICD in place. He has not had any shocks from his ICD. He does not have chest pain per se but describes an unusual sensation. No nausea or vomiting. No shortness of breath. Patient states there have been no changes in his
medications recently.
Past History
<Nava Crocker PA-C - Last Filed: 04/19/24 15:03>
Past History
ED Past Medical History: Arrthythmia (A-fib, ventricular tachycardia), CAD, COPD, GERD, HTN, Hypercholesterolemia, NIDDM, CT (2008, 2014) and Other (Migraine headaches, tobacco abuse, ventricular tachycardia)
ED Past Surgical History: Cardiac (PTCA with stent to the LAD 2007, PACER) and Orthopedic (Right foot surgery 2016)
Patient has exhibited threatening behavior?: No
Social History
Tobacco: Smoker
Alcohol: None
Drug: Narcotics (inconsistent UDS (+)oxycodone 2014)
Personal:
Living: with family
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
Family History
Family History: Hypertension and Early CAD
Phy Exam
<Barrington Osullivan DO - Last Filed: 04/20/24 20:20>
Physical Exam
Physical Exam:
General: Awake, Alert, Oriented X3. No acute distress but appears chronically ill
Vitals: Tachycardia
Head: Atraumatic
Eyes: Pupils equal, EOMI
Throat: Airway intact, no exudates
Neck: Trachea midline
Lungs: Clear and equal b/l
Heart: Tachycardic, irregular rate, no murmurs
Abd: Soft, Nontender, No pulsatile mass
Neuro: Nonfocal
Skin: Warm, dry, no rash
Extremities: pulses equal b/l, no edema
Course
<Nava Crocker PA-C - Last Filed: 04/19/24 15:03>
Orders/Labs/Results
Orders:
Orders
04/19/24 Dinner
Cholesterol Lowering
At Your Request: Limited Participation
Cholesterol Lowering: Sodium, 2 Gram
04/19/24 15:01
Electrocardiogram (*1) Urgent
Reason for Study: Chest Pain
EKG- Treatment ONCE
04/19/24 15:13
Complete Blood Count/With Diff Urgent
Comprehensive Metabolic Panel Urgent
Magnesium Urgent
Comment: ADDON
Troponin I Urgent
04/19/24 17:33
Sotalol [Betapace] 120 mg PO NOW STA
04/19/24 17:47
ECG as needed As Directed
ECG as needed for:: Rhythm Change
Notify MD As Directed
Notify physician if: For ECG after doses 1-5 and PRN rhythm change:
--Notify provider if QTc interval is > 500 msec
04/19/24 17:51
Apixaban [Eliquis] 5 mg PO NOW STA
04/19/24 18:09
Electrocardiogram (*1) Stat
Reason for Study: Chest Pain
04/19/24 18:10
EKG- Treatment ONCE
04/19/24 18:43
Admit/Transfer Patient As Directed
Co-Sign Provider:
Level of Care: Inpatient admission
Assign to:: IVU
Physician / Group: Benson Bryan
Diagnosis: NSVT
Reason for Hospitalization: NSVT
Expected length of stay greater than two midnights?: Yes
ELOS- Estimated Length of Stay in days: 3
I certify the patient meets the requirements for IP care: Yes
04/19/24 18:44
PRN Pain Medication Management As Directed
May give lesser potent ordered pain med per pt: Yes
preference::
Protocol:: Medication orders for pain may be administered in a
manner that supports deferring to patient preference
when the pt is:
- Requesting an ordered lesser potent pain medication.
Least to most potent pain medications are defined
as: acetaminophen < NSAID < tramadol < opioids
(morphine, oxycodone, hydromorphone).
- Requesting a lesser dose of the same medication IF
ORDERED.
- Requesting a less intrusive route of administration
if both routes are prescribed by the provider (PO <
IV).
04/19/24 18:45
Code Status As Directed
Resuscitation Status: Full Code
04/19/24 21:12
Albuterol [ProAIR HFA INHALER] 2 puff INH R Q4HPRN PRN
Carvedilol [Coreg] 25 mg PO BID
Minoxidil [Loniten] 20 mg PO BID
Nitroglycerin Sublingual [Nitrostat (Sublingual)] 0.4 mg SL [id number] PRN
04/19/24 21:12
Activity As Directed
Activity Level: As Tolerated
Vital Signs As Directed
Frequency: Per unit guidelines
Weight As Directed
Frequency: Daily
O2 Therapy [RESP] Routine
Titrate/Wean O2 to maintain O2 sat greater than (%): 94
Smoking Cessation Counseling [RESP] Routine
04/19/24 21:16
Butalb/Acetaminophen/Caffeine [Fioricet] 2 tab PO Q4HPRN PRN
04/20/24 05:46
Complete Blood Count/No Diff IN AM
Comprehensive Metabolic Panel IN AM
Magnesium IN AM
04/20/24 06:00
Echo 2D MMode Color/Doppler IN AM
Reason for Study: Cardiomyopathy
Comment: After DCCV
04/20/24 08:00
Apixaban [Eliquis] 5 mg PO BID
Aspirin Chewable [Low Strength Aspirin] 81 mg PO DAILY
Atorvastatin [Lipitor] 80 mg PO DAILY
Candesartan Cilexetil [Atacand] 32 mg PO DAILY
Dapagliflozin [Farxiga] 10 mg PO DAILY
Furosemide [Lasix] 20 mg PO DAILY
Pantoprazole [Protonix] 40 mg PO DAILY
Sotalol [Betapace] 120 mg PO Q12H
[id number]-mrtifnsc [Trelegy Ellipta] 1 inh INH R DAILY
04/21/24 06:00
Complete Blood Count/No Diff IN AM
Comprehensive Metabolic Panel IN AM
Magnesium IN AM
04/22/24 06:00
Complete Blood Count/No Diff IN AM
Comprehensive Metabolic Panel IN AM
Magnesium IN AM
Abnormal Lab Results
04/19/24
15:13
MCH 26.9 L pg
(27.0-31.0)
MCHC 32.5 L g/dL
(33.0-37.0)
Absolute Monos (auto) 1.0 H 10^3/uL
(0.1-0.6)
Absolute Eos (auto) 1.3 H 10^3/uL
(0-0.7)
Lymphocytes % 18.1 L %
(20.5-51.1)
Monocytes % 10.4 H %
(1.7-9.3)
Eosinophils % 13.3 H %
(0-6)
Chloride 97 L mmol/L
(98-107)
Glucose 217 H mg/dl
(70-99)
04/19/24 15:13
04/19/24 15:13
Vital Signs
Initial and Last Documented VS:
Initial Vital Signs
Temp Pulse Resp BP Pulse Ox
98.2 F 76 16 93/63 96
04/19/24 15:01 04/19/24 15:01 04/19/24 15:01 04/19/24 15:01 04/19/24 15:01
Last Documented Vital Signs
Temp Pulse Resp BP Pulse Ox
97.6 F 57 16 161/74 94
04/20/24 18:52 04/20/24 20:15 04/20/24 20:15 04/20/24 19:40 04/20/24 20:15
Kourtneylt;Barrington Osullivan, - Last Filed: 04/20/24 20:20>
Orders/Labs/Results
Orders:
Orders
04/19/24 Dinner
Cholesterol Lowering
At Your Request: Limited Participation
Cholesterol Lowering: Sodium, 2 Gram
04/19/24 15:01
Electrocardiogram (*1) Urgent
Reason for Study: Chest Pain
EKG- Treatment ONCE
04/19/24 15:13
Complete Blood Count/With Diff Urgent
Comprehensive Metabolic Panel Urgent
Magnesium Urgent
Comment: ADDON
Troponin I Urgent
04/19/24 17:33
Sotalol [Betapace] 120 mg PO NOW STA
04/19/24 17:47
ECG as needed As Directed
ECG as needed for:: Rhythm Change
Notify MD As Directed
Notify physician if: For ECG after doses 1-5 and PRN rhythm change:
--Notify provider if QTc interval is > 500 msec
04/19/24 17:51
Apixaban [Eliquis] 5 mg PO NOW STA
04/19/24 18:09
Electrocardiogram (*1) Stat
Reason for Study: Chest Pain
04/19/24 18:10
EKG- Treatment ONCE
04/19/24 18:43
Admit/Transfer Patient As Directed
Co-Sign Provider:
Level of Care: Inpatient admission
Assign to:: IVU
Physician / Group: Benson Bryan
Diagnosis: NSVT
Reason for Hospitalization: NSVT
Expected length of stay greater than two midnights?: Yes
ELOS- Estimated Length of Stay in days: 3
I certify the patient meets the requirements for IP care: Yes
04/19/24 18:44
PRN Pain Medication Management As Directed
May give lesser potent ordered pain med per pt: Yes
preference::
Protocol:: Medication orders for pain may be administered in a
manner that supports deferring to patient preference
when the pt is:
- Requesting an ordered lesser potent pain medication.
Least to most potent pain medications are defined
as: acetaminophen < NSAID < tramadol < opioids
(morphine, oxycodone, hydromorphone).
- Requesting a lesser dose of the same medication IF
ORDERED.
- Requesting a less intrusive route of administration
if both routes are prescribed by the provider (PO <
IV).
04/19/24 18:45
Code Status As Directed
Resuscitation Status: Full Code
04/19/24 21:12
Albuterol [ProAIR HFA INHALER] 2 puff INH R Q4HPRN PRN
Carvedilol [Coreg] 25 mg PO BID
Minoxidil [Loniten] 20 mg PO BID
Nitroglycerin Sublingual [Nitrostat (Sublingual)] 0.4 mg SL [id number] PRN
04/19/24 21:12
Activity As Directed
Activity Level: As Tolerated
Vital Signs As Directed
Frequency: Per unit guidelines
Weight As Directed
Frequency: Daily
O2 Therapy [RESP] Routine
Titrate/Wean O2 to maintain O2 sat greater than (%): 94
Smoking Cessation Counseling [RESP] Routine
04/19/24 21:16
Butalb/Acetaminophen/Caffeine [Fioricet] 2 tab PO Q4HPRN PRN
04/20/24 05:46
Complete Blood Count/No Diff IN AM
Comprehensive Metabolic Panel IN AM
Magnesium IN AM
04/20/24 06:00
Echo 2D MMode Color/Doppler IN AM
Reason for Study: Cardiomyopathy
Comment: After DCCV
04/20/24 08:00
Apixaban [Eliquis] 5 mg PO BID
Aspirin Chewable [Low Strength Aspirin] 81 mg PO DAILY
Atorvastatin [Lipitor] 80 mg PO DAILY
Candesartan Cilexetil [Atacand] 32 mg PO DAILY
Dapagliflozin [Farxiga] 10 mg PO DAILY
Furosemide [Lasix] 20 mg PO DAILY
Pantoprazole [Protonix] 40 mg PO DAILY
Sotalol [Betapace] 120 mg PO Q12H
fiwfwemyipr-xuvsuypdt-xqnyvxqw [Trelegy Ellipta] 1 inh INH R DAILY
04/21/24 06:00
Complete Blood Count/No Diff IN AM
Comprehensive Metabolic Panel IN AM
Magnesium IN AM
04/22/24 06:00
Complete Blood Count/No Diff IN AM
Comprehensive Metabolic Panel IN AM
Magnesium IN AM
Abnormal Lab Results
04/19/24
15:13
MCH 26.9 L pg
(27.0-31.0)
MCHC 32.5 L g/dL
(33.0-37.0)
Absolute Monos (auto) 1.0 H 10^3/uL
(0.1-0.6)
Absolute Eos (auto) 1.3 H 10^3/uL
(0-0.7)
Lymphocytes % 18.1 L %
(20.5-51.1)
Monocytes % 10.4 H %
(1.7-9.3)
Eosinophils % 13.3 H %
(0-6)
Chloride 97 L mmol/L
(98-107)
Glucose 217 H mg/dl
(70-99)
04/19/24 15:13
04/19/24 15:13
Vital Signs
Initial and Last Documented VS:
Initial Vital Signs
Temp Pulse Resp BP Pulse Ox
98.2 F 76 16 93/63 96
04/19/24 15:01 04/19/24 15:01 04/19/24 15:01 04/19/24 15:01 04/19/24 15:01
Last Documented Vital Signs
Temp Pulse Resp BP Pulse Ox
97.6 F 57 16 161/74 94
04/20/24 18:52 04/20/24 20:15 04/20/24 20:15 04/20/24 19:40 04/20/24 20:15
<Barrington Osullivan DO - Last Filed: 04/20/24 20:20>
MDM/Problems Addressed
Differential Diagnosis Includes:
A-fib with aberrancy, V. tach, CHF
MDM/Problems Addressed:
A-fib with rapid ventricular response. Will make engine monitor the patient is having significant runs of wide-complex rhythm which appears to be a ventricular tach cardia at a relatively slow rate. The these wide-complex is could reflect
aberrant conduction of his supraventricular beat. Patient remained relatively stable despite these frequent episodes. Cardiology consultation obtained. Rather than loading with amiodarone they will give an additional dose of sotalol. Patient
will require hospitalization for careful cardiac monitoring potential cardioversion.
<DO Joseph Cotto Filed: 04/20/24 20:20>
*Pulse Oximetry
Patient hypoxic: no
*EKG
Interpreted by ED Provider?: Yes
Interpretation: abnormal
Heart Rate: 131
Rate: tachycardiac
Rhythm: a-fib and other (short run ventricular tachycardia vs aberrancy)
Ischemia: non-specific ST changes
*Critical Care Note
Total Time (30-74mins, 75-104mins- exclusive of procedures): 35 min
comment:
Critical care statement: A total of 35 minutes of critical care time was provided for this patient. This includes management of unstable vital signs, evaluation of the patient at bedside, reviewing the patient's pertinent medical records, discussion
with consultants, review of old EKGs and review of pertinent medical records. This time with separate from time utilized to perform the aforementioned documented procedures
ED Attending Note
<Nava Crocker PA-C - Last Filed: 04/19/24 15:03>
-
Portions of this chart may have been created with voice recognition software.� Occasional wrong word or��sound alike� substitutions may have occurred due to the inherent limitations of voice recognition software.
Discharge Plan
Departure
Patient Disposition: Admit
Date of Disposition: 04/19/24
Time of Disposition: 18:06
Admit to: IVU
Presentation/result/management discussed w/ accepting MD/DO: Hospitalist
Condition: Serious
Discharge Problem:
Atrial fibrillation with RVR, Ventricular tachycardia
Interventions
Interventions:
*Risk Screen - Suicide Last Done: 04/19/24 15:01
*General Assessment Last Done: 04/19/24 17:28
*Neglect/Abuse Screening Last Done: 04/19/24 15:01
*ED COVID-19 Vaccine History Last Done: 04/19/24 17:28
*Nursing Disposition Last Done: 04/19/24 20:52
ED- Cardiac Assessment Last Done: 04/19/24 17:27
ED- Neurological Assessment Last Done: 04/19/24 17:27
ED- Pulmonary Assessment Last Done: 04/19/24 17:27
Discharge Date and Time
Discharge Date/Time: 04/19/24 20:52
[2024-04-19 15:20] LABS: % Basophils 1.5 % (0-2); % Eosinophils 13.3 % (0-6); % Immature Granulocytes 0.2 % (0-0.5); % Lymphocytes 18.1 % (20.5-51.1); % Monocytes 10.4 % (1.7-9.3); % Neutrophils 56.5 % (42.2-75.2); Absolute Basophils 0.2 10^3/uL (0-0.2); Absolute Eosinophils 1.3 10^3/uL (0-0.7); Absolute Lymphocytes 1.8 10^3/uL (1.2-3.4); Absolute Neutrophils 5.6 10^3/uL (1.4-6.5); Hematocrit 40.6 % (39.0-52.0); Hemoglobin 13.2 g/dL (13.0-18.0); Mean Corp Hgb Conc. 32.5 g/dL (33.0-37.0); Mean Corpuscular Hgb 26.9 pg (27.0-31.0); Mean Corpuscular Volume 82.9 fL (80.0-94.0); Mean Platelet Volume 8.7 fL (7.4-10.4); Nucleated Red Blood Cells % 0 % (-); Platelet Count 258 10^3/uL (130-400); Red Cell Dist. Width 13.7 % (11.5-14.5); White Blood Cell Count 9.8 10^3/uL (4.8-10.8)
[2024-04-19 15:35] LABS: ALT (SGPT) 13 U/L (0-50); AST (SGOT) 21 U/L (17-59); Albumin 4.4 g/dl (3.5-5.0); Alkaline Phosphatase 89 U/L (38-126); Blood Urea Nitrogen 16 mg/dl (9-20); Calcium 9.1 mg/dl (8.4-10.2); Carbon Dioxide 28 mmol/L (22-30); Chloride 97 mmol/L (98-107); Glucose 217 mg/dl (70-99); Potassium 4.4 mmol/L (3.5-5.1); Sodium 135 mmol/L (135-145); Total Bilirubin 0.5 mg/dl (0.2-1.3); Total Protein 7.8 g/dl (6.3-8.2); eGFR > 60.00
[2024-04-19 15:47] LABS: Troponin I 0.014 ng/ml
--- NOTE | 2024-04-19 17:01 | CON.CAR ---
Addendum entered and electronically signed by Kristian Shah MD 04/19/24 17:56:
I saw and examined the patient.
The [employer]'s note was reviewed and I agree with the note.
Comment:
Symptomatic recurrent AFib
No missed Eliquis
Runs of NSVT
In 2021 AFib preceded VF storm
Will increase sotalol and proceed to cardioversion tomorrow
AFib ablation (elective) is a very good option but the patient is not yet interested, but will consider
Watch for increased ventricular ectopy that would lead to short term amiodarone.
In 04/2022 he had cor angio showing stable anatomy from 2018. In 2018 he had a primary VF arrest and I placed his single chamber MDT ICD.
Original Note:
Consultation
Consultation Request
Date/Time Consultation Requested: 04/19/2024 16:30
Date/Time Consultation Performed: 04/19/2024 17:00
Requesting Provider: Dr. Barrington Osullivan
Performing Provider: VIK Payne for Dr. Shah
Reason for Consultation: Atrial fibrillation with rapid ventricular response
Medical History
-
Chief Complaint: Hypotension
History of Present Illness:
Gareth Ramos is a 63-year-old male with CAD, hypertension, recovered cardiomyopathy now EF 60 to 65%, ventricular tachycardia s/p Medtronic ICD, Recurrent VF (2021) initially managed with Amiodarone then transitioned to sotalol given COPD,
current smoker, and paroxysmal atrial fibrillation on Eliquis, who presented to the emergency department the chief complaint of hypotension. He was found to be in atrial fibrillation for ventricular response. He feels fatigued and has some
intermittent dizziness. He is experiencing palpitations. He is having atrial fibrillation with rapid ventricular response in addition to runs of NSVT. He denies missed doses of sotalol and apixaban.
Past Medical History
Past Medical History: Arrhythmias (VT, FIT, A-fib Status post ICD), CAD (PCI to LAD), CHF, COPD, HTN and Hypercholesterolemia
Past Surgical History: Cholecystectomy and Orthopedic
Social History
Tobacco: Smoker
Alcohol: Occasional
Living: With Family
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
Family History
Family History: Reviewed & Not Pertinent
Allergies / Home Medications
Allergy/AdvReac Type Severity Reaction Status Date / Time
diphenhydramine Allergy hyperactivi Verified 04/19/24 15:04
[Diphenhydramine] ty
sumatriptan Allergy PALPITATIONS, Verified 04/19/24 15:04
HTN
�Medication �Instructions �Recorded �Confirmed �Type
albuterol sulfate 90 mcg/actuation 2 puff inhalation Q4HPRN PRN sob 09/28/14 07/04/23 History
aerosol inhaler (Ventolin HFA)
carvedilol 25 mg tablet 25 mg PO BID ##60 09/30/14 07/04/23 Rx
furosemide 20 mg tablet 20 mg PO DAILY Fluid 06/11/17 07/04/23 History
Retention/Swelling
nitroglycerin 0.4 mg sublingual 0.4 mg sublingual [id number] PRN 06/12/17 07/04/23 Rx
tablet chest pain #25 tabs
omeprazole 40 mg capsule,delayed 40 mg PO DAILY Gastrointestinal 06/12/17 07/04/23 History
release Issue
atorvastatin 80 mg tablet 80 mg PO DAILY High Cholesterol 05/15/22 07/04/23 History
candesartan 16 mg tablet 32 mg PO DAILY Blood Pressure 05/15/22 07/04/23 History
metformin 500 mg tablet,extended 1,000 mg PO BID@0800,1700 05/15/22 07/04/23 History
release 24 hr
apixaban 5 mg tablet (Eliquis) 5 mg PO BID 30 days #60 tabs 05/17/22 07/04/23 Rx
minoxidil 10 mg tablet 20 mg PO BID Blood Pressure 06/06/22 07/05/23 History
fluticasone fur. 100 mcg-umeclid 1 inh inhalation DAILY 07/04/23 07/04/23 History
62.5 mcg-vilant 25 mcg Lung/Breathing Issues
inhalat.powder (Trelegy Ellipta)
omeprazole 40 mg capsule,delayed 40 mg PO DAILY Gastrointestinal 07/04/23 07/04/23 History
release Issue
sotalol 80 mg tablet 80 mg PO BID Heart 07/04/23 07/04/23 History
Disease/Condition
butalbital 50 mg-acetaminophen 325 2 cap PO Q4H PRN migraine 07/05/23 07/05/23 History
mg-caffeine 40 mg-codeine 30 mg cap
empagliflozin 25 mg tablet 25 mg PO DAILY Diabetes 07/05/23 07/05/23 History
(Jardiance)
aspirin 81 mg chewable tablet 81 mg PO DAILY #0 tabs 07/06/23 Rx
(Children's Aspirin)
prednisone 10 mg tablet 10 mg PO DIRECTED #30 tabs 07/06/23 Rx
Review of Systems
-
History Source: Patient
All other systems: Negative unless noted
Constitutional: Fatigue
EENT: No Symptoms
Respiratory: No Symptoms
Cardiac: No Symptoms and Palpitations
Abdomen/GI: No Symptoms
: No Symptoms
Musculoskeletal: No Symptoms
Skin: No Symptoms
Neurological: Dizzy
Endocrine: No Symptoms
Hematologic/Lymphatic: No Symptoms
Physical Exam
Vital Signs
Temp Pulse Resp BP Pulse Ox
98.2 F 115 17 109/57 91
04/19/24 15:01 04/19/24 16:45 04/19/24 16:45 04/19/24 16:45 04/19/24 16:45
Lab Results
04/19/24 15:13
04/19/24 15:13
Troponin I 0.014 ng/ml 04/19/24 15:13
Physical Exam
General: Well Developed, Well Nourished, No Apparent Distress and Comfortable
HEENT: Normocephalic and Anicteric
Respiratory: Clear and Non Labored Respirations
Cardiac: S1/S2 and Irregular Rhythm; Negative Peripheral Edema
Breast: Deferred by me
GI: Soft, Non Tender, Non Distended and Normal Bowel Sounds
Rectal: Deferred by Provider
Genito-urinary: No Costovertebral Tender
Musculoskeletal: No Clubbing and No Cyanosis
Skin: Warm and Dry
Neuro: AO x 3
Hematologic/Lymphatic: No Lymphadenopathy
Psych: Calm
Impression / Plan
-
IMPRESSION/PLAN: 63M CAD, hypertension, recovered cardiomyopathy now EF 60 to 65%, ventricular tachycardia s/p Medtronic ICD, Recurrent VF (2021) initially managed with Amiodarone then transitioned to sotalol given COPD, current smoker, and
paroxysmal atrial fibrillation on Eliquis, who presented to the emergency department the chief complaint of hypotension.
Primary health professor: Dr. Archer
NSVT
-Device interrogation pending
-Cardiac catheterization 2021 did not have significant change compared to 2018
-Sotalol 120 mg x 1 now, plan on increasing dosing to 120 mg twice daily, EKGs per protocol
-Echocardiogram after sinus rhythm is restored
-Formerly on sotalol, this was discontinued in the past due to COPD
Atrial fibrillation with rapid ventricular response
-Rate 120, increasing sotalol for NSVT as above
-Oral Anticoagulation: Apixaban 5 mg twice daily, he denies missed doses and abnormal bleeding
-[id number]: score at least 3 (Heart failure, HTN,Vascular disease)
-DCCV in a.m.
Heart failure with recovered EF, chronic
-He does not appear volume overloaded on exam
-GDMT as tolerated
-Update echocardiogram after sinus rhythm is restored
-Trend daily weight, I/O, and BMP
CAD
-Stable without chest pain
-Prior PCI, on apixaban and aspirin
-Continue medical management
Hypertension, now with hypotension, follow
ICD, interrogation pending
Current smoker, continue cessation recommended
COPD
Data Reviewed
-
EKG: Report Reviewed by me
Medical Tests (Nuc Med, Echo etc): Report Reviewed by me
Labs: Labs Reviewed by me
Old Records: Reviewed
[2024-04-19] MEDS: ELIQUIS 5 MG PO (18:08)
[2024-04-19] MEDS: BETAPACE 120 MG PO (18:08)
--- NOTE | 2024-04-19 18:12 | W.PN.UPDATE ---
Update Note
Progress Note Update
This serves as an addendum to the H&P dictated by Neha Ramirez on 04/19/2024
I saw and examined the patient.
The [employer] or PA's note was reviewed and I agree with the note.
Comment:
Patient is 63 years old man with history of hypertension, hyperlipidemia, COPD, CHF, CAD, V. tach and V-fib status post AICD, A-fib came into the hospital with generalized weakness and hypotensive. Patient has been having intermittent dizziness and
very weak overall and also complains of palpitations and feels 'weird sensation on his chest'. He was found to be tachycardic. He denies any fevers or chills. Denies n/v/d, dysuria, worsening cough. He odes have some sob at his baseline. His
hemoglobin 13.2, WBC 9.8, platelet count 258, sodium 135, potassium 4.4, creatinine 1. On review twelve-lead EKG shows irregular wide-complex tachycardia 130 bpm. Cardiology consulted in the ED. He was referred to hospitalist for further
evaluation.
Physical exam:
General: Acutely ill
HEENT: Normocephalic, Atraumatic and Moist Mucous Membranes
Respiratory: Clear to Auscultation; Negative Wheezes, Rales or Rhonchi
Cardiac: Irregular rate and rhythm, tachycardic and S1/S2
GI: Soft, Nontender and Nondistended
Musculoskeletal: No Clubbing, No Cyanosis and No Edema
Neuro: Awake, Alert and Oriented
Psych: Calm
A/P:
Wide-complex tachycardia, likely atrial fibrillation with rapid ventricular response--> continue sotalol and increased doses, continue anticoagulation, keep potassium above 4 and magnesium above 2 (check magnesium levels), oxygen supplementation,
continue cardiac monitoring. Cardiology consult appreciated. Plan for electrical cardioversion tomorrow.
--- NOTE | 2024-04-19 18:18 | HPS.HSE ---
Family Physician
-
Family Physician: Robinson Meadows
Chief Complaint
-
low blood pressure
History of Present Illness
Patient is a 63-year-old male with past medical history significant for hypertension, hyperlipidemia, type 2 diabetes, ventricle fibrillation with defibrillator, paroxysmal atrial fibrillation, and COPD who presented to [place] ED for evaluation
of low blood pressure 88/56, checked after feeling lightheaded. Patient reports after taking morning medications about an hour later he was not feeling weel and lightheaded, took his BP and discovered it was low so came to ED for evaluation. Deneis
any recent fever, chills, nausea, vomiting, diarrhea or urinary symptoms.
Medical History
Past Medical History
Past Medical History: Reports Other
Additional Past Medical History:
hypertension
hyperlipidemia
type 2 diabetes
ventricle fibrillation with defibrillator
paroxysmal atrial fibrillation
COPD
CAD
hx cardiac arrest
Past Surgical History: Reports Other
Additional Past Surgical History:
cardiac defibrillator
cholecystectomy
Social History
Tobacco: Smoker (pack per day smoker)
Alcohol: Occasional
Drug: None
Living: With Family
Family History
Family History: Not pertinent
Allergies / Home Medications
Allergies reflects when Allergies were last updated in [facility].
Home Medications with original date entered in [facility]
Allergy/Medication List:
Allergies
Allergy/AdvReac Type Severity Reaction Status Date / Time
diphenhydramine Allergy hyperactivi Verified 04/19/24 15:04
[Diphenhydramine] ty
sumatriptan Allergy PALPITATIONS, Verified 04/19/24 15:04
HTN
Home Medications
albuterol sulfate 90 mcg/actuation aerosol inhaler (Ventolin HFA) 2 puff inhalation R Q4HPRN PRN sob 09/28/14
carvedilol 25 mg tablet 25 mg PO BID ##60 05/16/15
furosemide 20 mg tablet 20 mg PO DAILY Fluid Retention/Swelling 06/11/17
nitroglycerin 0.4 mg sublingual tablet 0.4 mg sublingual [id number] PRN chest pain #25 tabs 06/12/17
atorvastatin 80 mg tablet 80 mg PO DAILY High Cholesterol 05/15/22
apixaban 5 mg tablet (Eliquis) 5 mg PO BID 30 days #60 tabs 05/17/22
minoxidil 10 mg tablet 20 mg PO BID Blood Pressure 06/06/22
fluticasone fur. 100 mcg-umeclid 62.5 mcg-vilant 25 mcg inhalat.powder (Trelegy Ellipta) 1 inh inhalation R DAILY Lung/Breathing Issues 07/04/23
omeprazole 40 mg capsule,delayed release 40 mg PO DAILY Gastrointestinal Issue 07/04/23
sotalol 80 mg tablet 80 mg PO BID Heart Disease/Condition 07/04/23
butalbital 50 mg-acetaminophen 325 mg-caffeine 40 mg-codeine 30 mg cap 2 cap PO Q4HPRN PRN migraine 07/05/23
empagliflozin 25 mg tablet (Jardiance) 25 mg PO DAILY Diabetes 07/05/23
aspirin 81 mg chewable tablet (Children's Aspirin) 81 mg PO DAILY #0 tabs 07/06/23
candesartan 32 mg tablet 32 mg PO DAILY 04/19/24
Review of Systems
-
History Source: Patient
Constitutional: Reports Fatigue
EENT: Reports No Symptoms
Respiratory: Reports Other (shortness of breath)
Cardiac: Reports Palpitations
Abdomen/GI: Reports No Symptoms
: Reports No Symptoms
Musculoskeletal: Reports No Symptoms
Skin: Reports No Symptoms
Neurological: Reports No Symptoms
Endocrine: Reports No Symptoms
Hematologic/Lymphatic: Reports No Symptoms
Psych: Reports No Symptoms
Physical Exam
Vital Signs
Vital Signs
Temp Pulse Resp BP Pulse Ox
98.2 F 154 17 113/65 94
04/19/24 15:01 04/19/24 18:08 04/19/24 17:15 04/19/24 18:08 04/19/24 17:15
Physical Exam
General: Well Developed, Well Nourished, No Apparent Distress and Comfortable
HEENT: NormoCephalic, Moist mucous membranes and Atraumatic
Respiratory: Clear and Non Labored Respirations
Cardiac: S1/S2, Irregular Rhythm and Tachycardia; No Murmur, Rub, Gallop or Peripheral Edema
Breast: Deferred by me
GI: Soft, Non Tender, Non Distended and Normal Bowel Sounds; No Organomegaly
Rectal: Deferred by Provider
Genito-urinary: Deferred by me
Musculoskeletal: No Clubbing, No Cyanosis and No Edema
Skin: Warm and IV/Catheter Site; No Rash
Neuro: Awake, Alert, AO x 3 and Nonfocal/grossly intact
Psych: Calm
Laboratory Results
-
04/19/24 15:13
04/19/24 15:13
Laboratory Results
Total Bilirubin 0.5 mg/dl (0.2-1.3) 04/19/24 15:13
AST 21 U/L (17-59) 04/19/24 15:13
ALT 13 U/L (0-50) 04/19/24 15:13
Alkaline Phosphatase 89 U/L (38-126) 04/19/24 15:13
Troponin I 0.014 ng/ml 04/19/24 15:13
Data Reviewed
-
Medical Tests (Nuc Med, Echo, EKG etc): Report Reviewed by me (EKG: ATRIAL FIBRILLATION WITH RAPID VENTRICULAR RESPONSE WITH PREMATURE VENTRICULAR OR ABERRANTLY CONDUCTED COMPLEXES ST and T WAVE ABNORMALITY, CONSIDER INFEROLATERAL ISCHEMIA)
Lab Data: Labs Reviewed by me
Impression/Plan
-
IMPRESSION/PLAN:
#NSVT
#paroxysmal atrial fibrillation
EKG: ATRIAL FIBRILLATION WITH RAPID VENTRICULAR RESPONSE WITH PREMATURE VENTRICULAR
OR ABERRANTLY CONDUCTED COMPLEXES
ST and T WAVE ABNORMALITY, CONSIDER INFEROLATERAL ISCHEMIA
Device interrogation pending
- Admit to IVU
- Consult Cardiology
- Sotalol per cardiology
- Cardioversion tomorrow
- monitor electrolytes, maintain K+ >4.0, Mag >2.0
#HFrEF
does not present overloaded on exam
ECHO 04/2022: Normal biventricular size and systolic function without regional wall motion
abnormality. Estimated LVEF 60-65%.
- continue carvedilol, candesartan, furosemide
- daily weights
- ECHO
#hypertension
- continue carvedilol, candesartan, furosemide, minoxidil
#hyperlipidemia
- continue atorvastatin
#type 2 diabetes
- continue Jardiance
#COPD
current pack a day smoker
- continue albuterol HFA, and Trelegy
- smoking cessation encouraged
#CAD
previous PCI
- continue aspirin and Eliquis
#ventricle fibrillation with defibrillator placement
#hx cardiac arrest
Code Status: Full Code
DVT Prophylaxis: Eliquis
[2024-04-19 21:19] LABS: Magnesium 1.9 mg/dl (1.6-2.3)
[2024-04-19 21:22] LABS: Glucose - Point of Care 125 mg/dl (70-99)
[2024-04-19] MEDS: LONITEN PO (21:44)
[2024-04-19] MEDS: COREG PO (21:44)
[2024-04-19] MEDS: MAGNESIUM SULFATE 100 IV (22:24)
--- NOTE | 2024-04-19 23:00 | PTCARENOTE ---
Pt rec'd to IVU at approx 2044 via stretcher awake,alert oriented. Pt with ht rates 125-150's afib with NSVT. B/P 80's systolic. O2 at 2 lit n/c placed Pt with lightheadedness with activity and c/o hand numbness. Mag level added on to ED labs
resulted at 1.9. House CONTRACT ADMIN contacted for order to replace. Mag 1gm currently infusing via LAC. Dr Gorman contacted for further orders regarding b/p. vi atiger text and message left on phone awaiting call back. Pt does not appear in any distress
despite low b/p and elevated ht rate. watching tv at present.
[2024-04-20] VITALS (13 sets, daily range): BP systolic 95–166; BP diastolic 57–98; PULSE 72; O2SAT 96; BMI 33.3
[2024-04-20] MEDS: LR 250 IV (00:09)
[2024-04-20 00:17] LABS: Blood Urea Nitrogen 18 mg/dl (9-20); Calcium 8.6 mg/dl (8.4-10.2); Carbon Dioxide 27 mmol/L (22-30); Chloride 96 mmol/L (98-107); Estimated Creatinine Clearance 82 ml/min; Glucose 162 mg/dl (70-99); Magnesium 2.4 mg/dl (1.6-2.3); Potassium 3.9 mmol/L (3.5-5.1); Sodium 132 mmol/L (135-145); eGFR > 60.00
--- NOTE | 2024-04-20 00:29 | PTCARENOTE ---
Pt converted to sinus rhythm just after mn. B/p 98/58 LR bolus infusing at this time. Cardiac PA made aware.
[2024-04-20 05:53] LABS: Hemoglobin 12.3 g/dL (13.0-18.0); Mean Corp Hgb Conc. 32.4 g/dL (33.0-37.0); Mean Corpuscular Hgb 26.8 pg (27.0-31.0); Mean Corpuscular Volume 82.8 fL (80.0-94.0); Mean Platelet Volume 8.6 fL (7.4-10.4); Platelet Count 261 10^3/uL (130-400); Red Blood Cell Count 4.59 10^6/uL (4.70-6.10); Red Cell Dist. Width 13.8 % (11.5-14.5); White Blood Cell Count 11.2 10^3/uL (4.8-10.8)
[2024-04-20 06:39] LABS: ALT (SGPT) 13 U/L (0-50); AST (SGOT) 19 U/L (17-59); Alkaline Phosphatase 98 U/L (38-126); Blood Urea Nitrogen 16 mg/dl (9-20); Calcium 8.8 mg/dl (8.4-10.2); Carbon Dioxide 29 mmol/L (22-30); Chloride 100 mmol/L (98-107); Estimated Creatinine Clearance 82 ml/min; Glucose 115 mg/dl (70-99); Magnesium 2.4 mg/dl (1.6-2.3); Potassium 4.2 mmol/L (3.5-5.1); Sodium 137 mmol/L (135-145); Total Bilirubin 0.5 mg/dl (0.2-1.3); Total Protein 7.4 g/dl (6.3-8.2); eGFR > 60.00
--- NOTE | 2024-04-20 06:42 | PTCARENOTE ---
Pt has remained in sinus since converting at midnight. Dr Gorman aware. b/p improved. 99% on R/A, O2 removed
[2024-04-20] MEDS: SPIRIVA RESPIMAT 2.5 MCG 2 PUFF INH (07:42)
[2024-04-20] MEDS: SYMBICORT 80/4.5 MCG INHALER 2 PUFF INH ×2 (07:42→20:05)
[2024-04-20] MEDS: LIPITOR 80 MG PO (08:40)
[2024-04-20] MEDS: LONITEN PO (08:43)
[2024-04-20] MEDS: BETAPACE 120 MG PO ×2 (08:43→19:40)
[2024-04-20] MEDS: ATACAND 32 MG PO (08:43)
[2024-04-20] MEDS: PROTONIX 40 MG PO (08:44)
[2024-04-20] MEDS: LASIX 20 MG PO (08:44)
[2024-04-20] MEDS: FARXIGA 10 MG PO (08:44)
[2024-04-20] MEDS: COREG 25 MG PO ×2 (08:44→22:23)
[2024-04-20] MEDS: LOW STRENGTH ASPIRIN 81 MG PO (08:44)
[2024-04-20] MEDS: ELIQUIS 5 MG PO ×2 (08:44→19:41)
--- NOTE | 2024-04-20 08:46 | W.PN.HOSP.TC ---
Today's Communication/Plan
-
Sotalol loading. Cardiac monitoring.
Assessment / Plan
Assessment / Plan
Physical Exam
General: Well Developed, Well Nourished, No Apparent Distress and Comfortable
HEENT: NormoCephalic, Moist mucous membranes and Atraumatic
Respiratory: Clear and Non Labored Respirations
Cardiac: S1/S2, Irregular Rhythm and Tachycardia; No Murmur, Rub, Gallop or Peripheral Edema
Breast: Deferred by me
GI: Soft, Non Tender, Non Distended and Normal Bowel Sounds; No Organomegaly
Rectal: Deferred by Provider
Genito-urinary: Deferred by me
Musculoskeletal: No Clubbing, No Cyanosis and No Edema
Skin: Warm and IV/Catheter Site; No Rash
Neuro: Awake, Alert, AO x 3 and Nonfocal/grossly intact
Psych: Calm
A/P:
#NSVT
#paroxysmal atrial fibrillation--> converted to normal sinus rhythm
EKG: ATRIAL FIBRILLATION WITH RAPID VENTRICULAR RESPONSE WITH PREMATURE VENTRICULAR
OR ABERRANTLY CONDUCTED COMPLEXES
ST and T WAVE ABNORMALITY, CONSIDER INFEROLATERAL ISCHEMIA
Device interrogation pending
- Admitted to IVU
- Consult Cardiology appreciated
- Sotalol per cardiology--> continue loading dose today
- No need for cardioversion today
- monitor electrolytes, maintain K+ >4.0, Mag >2.0
-Discussed with cardiology today on 04/20
-Discussed with daughter at bedside today on 04/20
#HFrEF
does not present overloaded on exam
ECHO 04/2022: Normal biventricular size and systolic function without regional wall motion
abnormality. Estimated LVEF 60-65%.
- continue carvedilol, candesartan, furosemide
- daily weights
- ECHO
#hypertension
- continue carvedilol, candesartan, furosemide, minoxidil
#hyperlipidemia
- continue atorvastatin
#type 2 diabetes
- continue Jardiance
#COPD
current pack a day smoker
- continue albuterol HFA, and Trelegy
- smoking cessation encouraged
#CAD
previous PCI
- continue aspirin and Eliquis
#ventricle fibrillation with defibrillator placement
#hx cardiac arrest
Code Status: Full Code
DVT Prophylaxis: Eliquis
Total time spent on today's encounter was 52 minutes which included time spent in counseling the patient/family regarding diagnosis and treatment plan as listed above, goals of care, and symptom management. Case was discussed with nursing staff,
specialists, and care coordinators/case management. All labs and imaging personally reviewed by me. Remainder the time spent in detailed review of previous records, lab data, imaging, and other medical provider documentation.
Anticipated Discharge: 24 - 48 hours
Subjective/Interval History
-
Date of Service: April 20, 2024
Patient converted to normal sinus rhythm overnight but blood pressure soft and at times bradycardic. No chest pain.
Objective Data
-
Labs:
Laboratory Results
04/19/24 04/20/24
23:48 05:46
WBC 11.2 H
Hgb 12.3 L
Hct 38.0 L
Plt Count 261
Sodium 132 L 137
Potassium 3.9 4.2
Chloride 96 L 100
Carbon Dioxide 27 29
BUN 18 16
Creatinine 1.1 1.1
Glucose 162 H 115 H
Calcium 8.6 8.8
Total Bilirubin 0.5
AST 19
ALT 13
Alkaline Phosphatase 98
Vital Signs:
Vital Signs
Temp Pulse Resp BP Pulse Ox
98.4 F 60 18 125/72 92
04/20/24 07:04 04/20/24 07:48 04/20/24 07:48 04/20/24 07:00 04/20/24 07:48
I&O
04/19/24 04/20/24 04/21/24
06:59 06:59 06:59
Intake Total 830 / 830
Output Total 1600 / 1600
Balance -770 / -770
--- NOTE | 2024-04-20 11:42 | W.PN.CD ---
Today's Communication / Plan
-
Continue sotalol loading. Given patient's pacemaker and ICD in place, could consider discharge tomorrow.
Follow-up echo results.
Impression / Plan
-
IMPRESSION/PLAN: 63M CAD, hypertension, recovered cardiomyopathy now EF 60 to 65%, ventricular tachycardia s/p Medtronic ICD, Recurrent VF (2021) initially managed with Amiodarone then transitioned to sotalol given COPD, current smoker, and
paroxysmal atrial fibrillation on Eliquis, who presented to the emergency department the chief complaint of hypotension.
Primary dental practice manager: Dr. Archer
NSVT
-Cardiac catheterization 2021 did not have significant change compared to 2017
-Sotalol 120 mg increased to 120mg BID, QTc is stable
-Echocardiogram today
-Formerly on sotalol, this was discontinued in the past due to COPD, monitor with increased dose
Atrial fibrillation with rapid ventricular response
-back in NSR, no conversion pause
-Oral Anticoagulation: Apixaban 5 mg twice daily, he denies missed doses and abnormal bleeding
-[id number]: score at least 3 (Heart failure, HTN,Vascular disease)
-increasing Sotalol
Heart failure with recovered EF, chronic
-He does not appear volume overloaded on exam
-GDMT as tolerated
-Update echocardiogram after sinus rhythm is restored
-Trend daily weight, I/O, and BMP
CAD
-Stable without chest pain
-Prior PCI, on apixaban and aspirin
-Continue medical management
Hypertension, now with hypotension, follow
ICD, interrogation pending
Current smoker, continue cessation recommended
COPD
Subjective:
No cp sob or palpitaitons.
Physical Exam
Vital Signs/Labs
Vital Signs
Temp Pulse Resp BP Pulse Ox
98.4 F 62 18 115/65 94
04/20/24 07:04 04/20/24 10:30 04/20/24 07:48 04/20/24 10:28 04/20/24 08:48
04/19/24 04/20/24 04/21/24
06:59 06:59 06:59
Actual Weight 102.3 kg
04/20/24 05:46
04/20/24 05:46
Magnesium 2.4 mg/dl (1.6-2.3) H 04/20/24 05:46
LAB Results
04/19/24
15:13
Troponin I 0.014
Physical Exam
Constitutional: No acute distress
Cardiovascular: Rhythm & rate is regular, Pedal edema is absent, JVD pressure is normal, Systolic murmur absent and Diastolic murmur absent
Respiratory: Respiratory effort normal, Lungs clear to auscul., Wheeze Absent, Crackles Absent and Rhonchi Absent
Neuro/Psych: AO x 3
Data Reviewed
-
Date of Service: April 20, 2024
Medical Decision Making: Review of Case with other Provider (dr raymundo continue sotalol loading)
X-Ray/CT/US/MRI/NUC/PET: Discussed with Patient
--- NOTE | 2024-04-20 15:52 | PTOTSP ---
Pt is independent with ambulation without an assistive device on level surface and stairs with railing. No acute PT needs were identified. Will sign off.
--- NOTE | 2024-04-20 16:26 | CM ---
CM following for DC planning needs.
Met w/ patient and dtr. to complete initial assessment.
Pt. resides w/ son in a private, 2 story home w/ 2 [address]. Functionally, patient is indep. w/ ADLs, mobility without the use of any assisted device.
Anticipate DC to home once medically stable, without needs.
Will follow.
[2024-04-20] MEDS: FIORICET 2 TAB PO ×2 (18:24→22:24)
--- NOTE | 2024-04-20 18:36 | PTCARENOTE ---
Pt up independently. Telemetry shows sinus rhythm with frequent PVC's, occasional couplets and triplets. Minoxidil held at pt's request this morning for SBP 125 which he does at home. Pt had an echo done. Pt reported 4/10 migraine headache, given
fioricet at 18:30.
[2024-04-20] MEDS: LONITEN 20 MG PO (19:40)
--- NOTE | 2024-04-20 23:57 | PTCARENOTE ---
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
and/or vomiting; EKG completed following third dose of sotalol; Call ibarra within reach; Plan of care ongoing
[2024-04-21 02:54] VITALS: BMI 33.5
[2024-04-21 02:57] VITALS: BP 139/80
[2024-04-21] MEDS: FIORICET 2 TAB PO ×3 (03:05→11:35)
[2024-04-21 03:41] LABS: Hematocrit 37.5 % (39.0-52.0); Hemoglobin 12.2 g/dL (13.0-18.0); Mean Corp Hgb Conc. 32.5 g/dL (33.0-37.0); Mean Corpuscular Hgb 27.1 pg (27.0-31.0); Mean Corpuscular Volume 83.1 fL (80.0-94.0); Platelet Count 253 10^3/uL (130-400); Red Blood Cell Count 4.51 10^6/uL (4.70-6.10); Red Cell Dist. Width 13.6 % (11.5-14.5); White Blood Cell Count 8.4 10^3/uL (4.8-10.8)
[2024-04-21 04:06] LABS: ALT (SGPT) 13 U/L (0-50); AST (SGOT) 20 U/L (17-59); Albumin 4.3 g/dl (3.5-5.0); Alkaline Phosphatase 89 U/L (38-126); Blood Urea Nitrogen 14 mg/dl (9-20); Calcium 8.9 mg/dl (8.4-10.2); Carbon Dioxide 32 mmol/L (22-30); Chloride 99 mmol/L (98-107); Estimated Creatinine Clearance 82 ml/min; Glucose 124 mg/dl (70-99); Magnesium 2.3 mg/dl (1.6-2.3); Potassium 4.6 mmol/L (3.5-5.1); Sodium 140 mmol/L (135-145); Total Bilirubin 0.4 mg/dl (0.2-1.3); Total Protein 7.8 g/dl (6.3-8.2); eGFR > 60.00
--- NOTE | 2024-04-21 07:28 | PN.CDI ---
CDI
- -
CDI:
Physician Documentation Request
Admit Date: 04/19/24 19:56
Dear Doctor Randi,
Please review the following and provide your response in the progress notes.
Clinical Indicators:
PN, 04/20
#HFrEF
#ECHO 04/2022: Normal biventricular size and systolic function without regional wall motion
#...abnormality. Estimated LVEF 60-65%.
Cardiology, PN, 04/20
#Heart failure with recovered EF, chronic
#-He does not appear volume overloaded on exam
Based on the above and your clinical assessment, please provide further specificity regarding the most likely type and acuity of CHF evaluated, treated or monitored.
Chronic Diastolic CHF
Chronic Systolic CHF
Other (please specify)
Type Acuity
Systolic Acute
Diastolic Chronic
Combined Systolic/Diastolic Acute on Chronic
Other Unable to Determine
Unable to Determine
Use of terms such as suspected, likely, concern for, or probable (associated with a specific diagnosis that is being evaluated, monitored, or treated as if it exists) are acceptable and can be coded in the inpatient setting, when documented at the
time of discharge.
Thank you,
Elida Isabel RN BSN CCDS
CDI Specialist
please contact via tiger text
Please use your independent medical judgment in providing your response.
[2024-04-21 07:45] VITALS: BP 162/81
[2024-04-21] MEDS: SPIRIVA RESPIMAT 2.5 MCG 2 PUFF INH (07:51)
[2024-04-21] MEDS: SYMBICORT 80/4.5 MCG INHALER 2 PUFF INH (07:51)
--- NOTE | 2024-04-21 07:58 | W.PN.CD ---
Today's Communication / Plan
-
Home today on current medications
Will arrange follow-up.
Impression / Plan
-
IMPRESSION/PLAN: 63M CAD, hypertension, recovered cardiomyopathy now EF 60 to 65%, ventricular tachycardia s/p Medtronic ICD, Recurrent VF (2021) initially managed with Amiodarone then transitioned to sotalol given COPD, current smoker, and
paroxysmal atrial fibrillation on Eliquis, who presented to the emergency department the chief complaint of hypotension.
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
NSVT
-Cardiac catheterization 2021 did not have significant change compared to 2017
-Sotalol 120 mg increased to 120mg BID, QTc is stable
-d/w EP given no further sustained arrhythmia and no extensive ectopy ok for discharge today.
-Echo 04/21/24 normal LVEF, mild LVH, Gd II DD, PASP 46mmHgm Ao Valve not well seen
-Formerly on sotalol, this was discontinued in the past due to COPD, monitor with increased dose
Atrial fibrillation with rapid ventricular response
-back in NSR, no conversion pause
-Oral Anticoagulation: Apixaban 5 mg twice daily, he denies missed doses and abnormal bleeding
-[id number]: score at least 3 (Heart failure, HTN,Vascular disease)
-increased Sotalol
Heart failure with recovered EF, chronic
-He does not appear volume overloaded on exam
-GDMT as tolerated
-Trend daily weight, I/O, and BMP
CAD
-Stable without chest pain
-Prior PCI, on apixaban and aspirin
-Continue medical management
Hypertension, p/w hypotension with rvr, now normalized, continue to monitor over time.
ICD, interrogation pending
Current smoker, continue cessation recommended
COPD
Subjective:
No cp sob or palpitaitons.
Physical Exam
Vital Signs/Labs
Vital Signs
Temp Pulse Resp BP Pulse Ox
97.8 F 52 16 162/81 97
04/21/24 07:43 04/21/24 07:54 04/21/24 07:54 04/21/24 07:45 04/21/24 07:54
04/20/24 04/21/24 04/22/24
06:59 06:59 06:59
Actual Weight 102.3 kg 102.8 kg
04/21/24 03:01
04/21/24 03:01
Magnesium 2.3 mg/dl (1.6-2.3) 04/21/24 03:01
LAB Results
04/19/24
15:13
Troponin I 0.014
Physical Exam
Constitutional: No acute distress
Cardiovascular: Rhythm & rate is regular, Pedal edema is absent, JVD pressure is normal, Systolic murmur absent and Diastolic murmur absent
Respiratory: Respiratory effort normal, Lungs clear to auscul., Wheeze Absent, Crackles Absent and Rhonchi Absent
Neuro/Psych: AO x 3
Data Reviewed
-
Date of Service: April 21, 2024
Medical Decision Making: Review of Case with other Provider (Dr. Bryan, okay for discharge today.)
EKG: Tracing Personally Visualized and interpreted (Sinus rhythm with stable QTc nonspecific interventricular conduction delay with nonspecific ST-T wave changes unchanged from prior) and Other (Sinus rhythm, rare ectopy no sustained arrhythmia)
--- NOTE | 2024-04-21 09:09 | W.PN.HOSP.TC ---
Addendum entered and electronically signed by Benson Bryan MD 04/21/24 14:26:
Chronic diastolic congestive heart failure
Original Note:
Today's Communication/Plan
-
Discharge planning today.
Assessment / Plan
Assessment / Plan
Physical Exam
General: Well Developed, Well Nourished, No Apparent Distress and Comfortable
HEENT: NormoCephalic, Moist mucous membranes and Atraumatic
Respiratory: Clear and Non Labored Respirations
Cardiac: S1/S2, Irregular Rhythm and Tachycardia; No Murmur, Rub, Gallop or Peripheral Edema
Breast: Deferred by me
GI: Soft, Non Tender, Non Distended and Normal Bowel Sounds; No Organomegaly
Rectal: Deferred by Provider
Genito-urinary: Deferred by me
Musculoskeletal: No Clubbing, No Cyanosis and No Edema
Skin: Warm and IV/Catheter Site; No Rash
Neuro: Awake, Alert, AO x 3 and Nonfocal/grossly intact
Psych: Calm
A/P:
#NSVT
#paroxysmal atrial fibrillation--> converted to normal sinus rhythm
EKG: ATRIAL FIBRILLATION WITH RAPID VENTRICULAR RESPONSE WITH PREMATURE VENTRICULAR
OR ABERRANTLY CONDUCTED COMPLEXES
ST and T WAVE ABNORMALITY, CONSIDER INFEROLATERAL ISCHEMIA
Device interrogation pending
- Admitted to IVU
- Consult Cardiology appreciated
- Sotalol per cardiology--> continue sotalol 120 mg p.o. twice a day.
- No need for cardioversion yesterday or today
- monitor electrolytes, maintain K+ >4.0, Mag >2.0
-Discussed with cardiology today on 04/21
-Discussed with daughter at bedside today on 04/21
-Cardiology cleared him for discharge today.
#HFrEF
does not present overloaded on exam
ECHO 04/2022: Normal biventricular size and systolic function without regional wall motion
abnormality. Estimated LVEF 60-65%.
- continue carvedilol, candesartan, furosemide
- daily weights
- ECHO
#hypertension
- continue carvedilol, candesartan, furosemide, minoxidil
#hyperlipidemia
- continue atorvastatin
#type 2 diabetes
- continue Jardiance
#COPD
current pack a day smoker
- continue albuterol HFA, and Trelegy
- smoking cessation encouraged
#CAD
previous PCI
- continue aspirin and Eliquis
#ventricle fibrillation with defibrillator placement
#hx cardiac arrest
Code Status: Full Code
DVT Prophylaxis: Eliquis
Anticipated Discharge: Today
Subjective/Interval History
-
Date of Service: April 21, 2024
Patient denies any chest pain or shortness of breath or lightheadedness. Remains in normal sinus rhythm and sinus bradycardia at times. Blood pressure stable
Objective Data
-
Labs:
Laboratory Results
04/21/24
03:01
WBC 8.4
Hgb 12.2 L
Hct 37.5 L
Plt Count 253
Sodium 140
Potassium 4.6
Chloride 99
Carbon Dioxide 32 H
BUN 14
Creatinine 1.1
Glucose 124 H
Calcium 8.9
Total Bilirubin 0.4
AST 20
ALT 13
Alkaline Phosphatase 89
Vital Signs:
Vital Signs
Temp Pulse Resp BP Pulse Ox
97.8 F 52 16 162/81 97
04/21/24 07:43 04/21/24 07:54 04/21/24 07:54 04/21/24 07:45 04/21/24 07:54
I&O
04/20/24 04/21/24 04/22/24
06:59 06:59 06:59
Intake Total 830 / 830 240 / 240
Output Total 1600 / 1600
Balance -770 / -770 240 / 240
[2024-04-21 09:10] VITALS: BP 159/77
[2024-04-21] MEDS: FARXIGA 10 MG PO (09:17)
[2024-04-21] MEDS: LIPITOR 80 MG PO (09:17)
[2024-04-21] MEDS: COREG 25 MG PO (09:17)
[2024-04-21] MEDS: ELIQUIS 5 MG PO (09:17)
[2024-04-21] MEDS: LOW STRENGTH ASPIRIN 81 MG PO (09:17)
[2024-04-21] MEDS: PROTONIX 40 MG PO (09:17)
[2024-04-21] MEDS: LASIX 20 MG PO (09:18)
[2024-04-21] MEDS: BETAPACE 120 MG PO (09:18)
[2024-04-21] MEDS: ATACAND 32 MG PO (09:18)
[2024-04-21] MEDS: LONITEN 20 MG PO (09:18)
[2024-04-21 11:00] VITALS: BP 102/65
[2024-04-21 12:14] VITALS: BP 105/57
--- NOTE | 2024-04-21 14:19 | W.DCSUMMARY ---
Discharge Summary
Discharge Data
Date of Admission: 04/19/24
Date of Discharge: 04/21/24
-
Pending Results: No
Hospital Course
Patient is 63 years old male with history of hypertension, CAD, recovered cardiomyopathy, ventricular tachycardia s/p Medtronic ICD, recurrent VF, COPD, came into the hospital wide-complex tachycardia and hypotension and lightheadedness. Cardiology
consulted. He was placed on cardiac monitoring. His sotalol was increased. Given loading doses of sotalol cardiology recommended continue monitoring as inpatient. He had an echocardiogram that revealed grade 2 diastolic dysfunction and normal
biventricular size and systolic function without regional wall motion abnormality and mild concentric left ventricular hypertrophy and moderate left atrial enlargement and mild aortic stenosis. Patient did well rest of the hospital stay and he
converted to normal sinus rhythm. Cardiology cleared for discharge. He is going to be discharged in stable condition today.
Discharge duration: 35 minutes
Discharge Plan
-
Patient Disposition: Home (Routine Discharge)
Discharge Diagnosis/Procedures: Paroxysmal atrial fibrillation with rapid ventricular response. Nonsustained ventricular tachycardia. Chronic diastolic congestive heart failure with recovered ejection fraction. History of coronary artery disease.
Hypertension. Hypotension. Chronic obstructive pulmonary disease.
Diet: Low Cholesterol and Restrict fluids to 48 oz
Activity: As tolerated
Blood Work: Please PCP to order CBC, BMP within 1 week
Specialty Instructions: Weigh Daily- Call MD for wt gain/loss 3 lbs overnight/5 lbs in 1 week
Referrals:
Phylicia Lopez CRNP [Specified Professional Personl] - 05/13/24 10:40 am
Robinson Meadows MD [Family Provider] - in less than 1 week
Prescriptions:
New
sotalol 120 mg Tablet
120 mg PO Q12H 30 Days Qty: 60 0RF
Continued
albuterol sulfate [Ventolin HFA] 90 MCG/PUFF HFA aerosol inhaler
2 puff inhalation R Q4HPRN PRN (Reason: sob)
carvedilol 25 MG tablet
25 mg PO BID Qty: 60 3RF
furosemide 20 MG tablet
20 mg PO DAILY
nitroglycerin 0.4 MG tablet, sublingual
0.4 mg sublingual [id number] PRN (Reason: chest pain) Qty: 25 2RF
atorvastatin 80 MG tablet
80 mg PO DAILY
Eliquis 5 mg Tablet
5 mg PO BID 30 Days Qty: 60 0RF
minoxidil 10 mg Tablet
20 mg PO BID
omeprazole 40 mg Capsule,Delayed Release(Dr/Ec)
40 mg PO DAILY
Trelegy Ellipta 100-62.5-25 mcg Blister With Device
1 inh INHALATION R DAILY
[id number]-cod [id number] mg Capsule
2 cap PO Q4HPRN PRN (Reason: migraine)
Jardiance 25 mg Tablet
25 mg PO DAILY
aspirin [Children's Aspirin] 81 mg Tablet,Chewable
81 mg PO DAILY Qty: 0 0RF
candesartan 32 mg Tablet
32 mg PO DAILY
Discontinued
sotalol 80 mg Tablet
80 mg PO BID
Discharge Orders:
Discharge Patient (As Directed); Ordered 04/21/24
Ordered By: Benson Bryan
Care Plan Goals
Care Plan Goals:
Problem: Readiness for enhanced knowledge related to diagnosis and treatment plan
Goal: Understand your diagnosis and treatment plan needs, including medications if applicable.
Instructions: Know your diagnosis, underlying causes and treatment plan options, including medications if applicable. Consult with your health care team to learn about your diagnosis and treatment plan, including medications if applicable.
Discharge Date and Time
Discharge Date/Time: 04/21/24 15:50
Print Language: KINYARWANDA
[2024-04-21 15:05] VITALS: BP 132/92
--- NOTE | 2024-04-21 15:51 | PTCARENOTE ---
Pt with 08/25 migraine headache today, taking fioricet with minimal relief, pt declined toradol ordered by . Pt seen by Drs. Randi Ratliff. Telemetry and IV device removed. Discharge instructions reviewed with pt regarding medications
and their possible side effects, CHF guidelines, reporting cares and concerns and follow up appt's and lab work. Very good understanding verbalized. Pt escorted out via wheelchair and discharged to home.
== END 2024-04-21 15:50 | disposition home or self-care (01) | DRG 309 ==
LOC: IVU 19:56
PROVIDERS: Nurse Practitioner Family; Nurse Practitioner Gerontology; Physician Assistant; ADMITTING PHYSICIAN Hospitalist; EMERGENCY PHYSICIAN Emergency Medicine; FAMILY PHYSICIAN Internal Medicine; OTHER PHYSICIAN Internal Medicine Cardiovascular Disease
PROC: 4B02XTZ Measurement of Cardiac Defibrillator, External Approach (ICD-10-PCS; 2024-04-19)
DX: I47.20 Ventricular tachycardia, unspecified (principal); I42.9 Cardiomyopathy, unspecified; I50.32 Chronic diastolic (congestive) heart failure; I48.0 Paroxysmal atrial fibrillation; I11.0 Hypertensive heart disease with heart failure; E78.00 Pure hypercholesterolemia, unspecified; E11.9 Type 2 diabetes mellitus without complications; J44.9 Chronic obstructive pulmonary disease, unspecified; F17.210 Nicotine dependence, cigarettes, uncomplicated; I25.10 Atherosclerotic heart disease of native coronary artery without angina pectoris; Z86.74 Personal history of sudden cardiac arrest; Z95.810 Presence of automatic (implantable) cardiac defibrillator; I95.9 Hypotension, unspecified; Z79.01 Long term (current) use of anticoagulants; Z79.899 Other long term (current) drug therapy; Z79.84 Long term (current) use of oral hypoglycemic drugs; Z79.82 Long term (current) use of aspirin; G43.909 Migraine, unspecified, not intractable, without status migrainosus; I25.2 Old myocardial infarction; K21.9 Gastro-esophageal reflux disease without esophagitis; Z95.5 Presence of coronary angioplasty implant and graft
CPT/HCPCS: 80048; 80053; 82962; 83735; 84484; 85025; 85027; 93005; 93306; 94640; 97163; 99291; 99406

== ENCOUNTER 2024-04-30 02:37 | Inpatient (IN) | payer MEDICARE, OTHER, SELFPAY ==
[2024-04-29] VITALS (7 sets, daily range): BP systolic 97–127; BP diastolic 60–84; BMI 36.6
[2024-04-29] MEDS: CARDIZEM 20 MG IV (22:40)
[2024-04-29] MEDS: CARDIZEM 125 IV (22:41)
[2024-04-29 22:42] LABS: Hematocrit 39.9 % (39.0-52.0); Hemoglobin 12.5 g/dL (13.0-18.0); Mean Corp Hgb Conc. 31.3 g/dL (33.0-37.0); Mean Corpuscular Hgb 26.7 pg (27.0-31.0); Mean Corpuscular Volume 85.3 fL (80.0-94.0); Mean Platelet Volume 9.1 fL (7.4-10.4); Platelet Count 242 10^3/uL (130-400); Red Blood Cell Count 4.68 10^6/uL (4.70-6.10); Red Cell Dist. Width 14.3 % (11.5-14.5); White Blood Cell Count 13.3 10^3/uL (4.8-10.8)
--- NOTE | 2024-04-29 22:43 | ED.GENMED ---
Addendum entered and electronically signed by Gureline Newton MD 05/03/24 09:52:
Critical care time: 35 minutes
Original Note:
History of Present Illness
<MARLENY Jung - Last Filed: 04/30/24 06:04>
General
Chief Complaint: Heart Rate Problem
Source: patient and family
Exam Limitations: none
Time Seen by Provider: 04/29/24 22:17
Nursing documentation reviewed up to this point in time: agreed with
History of Present Illness
History of Present Illness:
Pt is a 63 yo M with PMH of AFib and VFib presenting with 'heart racing' x 1 hour. Pt was here for same problem earlier this month. Pt also admits to chest pain at 5/10 that radiates to his back, he describes it as an 'abnormal feeling.' Pt also
admits to intermitted periods of lightheadedness that have occurred since onset of increased heart rate tonight. Pt states it is worse when he is walking and slightly better when lying down. Pt states he has not taken his Eliquis or sotalol tonight
yet. Pt admits he has an ICD that was placed in May of 2017 after he experienced VFib arrest. Pt states he has not received any shocks from device since onset of symptoms tonight. Pt denies n/v, PEREZ, changes in vision, numbness/tingling in
extremities x 4, and abdominal pain.
Past History
<MARLENY Jung - Last Filed: 04/30/24 06:04>
Past History
ED Past Medical History: Arrthythmia (A-fib, ventricular tachycardia), CAD, COPD, GERD, HTN, Hypercholesterolemia, NIDDM, SC (2008, 2015) and Other (Migraine headaches, tobacco abuse, ventricular tachycardia)
ED Past Surgical History: Cardiac (PTCA with stent to the LAD 2007, PACER) and Orthopedic (Right foot surgery 2016)
Patient has exhibited threatening behavior?: No
Social History
Tobacco: Smoker
Alcohol: None
Drug: Narcotics (inconsistent UDS (+)oxycodone 2015)
Personal:
Living: with family
Employment: Employed ([employer] member)
Family History
Family History: Hypertension and Early CAD
Review of Systems
<MARLENY Jung - Last Filed: 04/30/24 06:04>
Review of Systems
Allergies reviewed?: Yes
Other source history: family
Constitutional: Denies fever, fatigue or chills
Respiratory: Reports trouble breathing; Denies cough
Cardiac: Reports chest pain (pt describes as 'uncomfortable and adnormal') and palpitations; Denies syncope
ABD/GI: Denies abdominal pain, nausea or vomiting
Musculoskeletal: Reports back pain; Denies edema or neck pain
Neurological: Reports dizzy; Denies headache, weakness or numbness
Phy Exam
<MARLENY Jung - Last Filed: 04/30/24 06:04>
General Physical Exam
General Presentation: well appearing and no apparent distress
General age: appears stated age
General Skin: warm and dry
General Habitus: normal and obese
General Mental: alert
General Hydration: dry mucous membranes
Cardiovascular Exam
Cardiovascular Exam: irregularly irregular and tachycardia
Pulmonary Exam
Pulmonary Exam: no respiratory distress and generalized wheezing
Oxygen Status: room air
Breath Sounds: Wheeze: generalized (expiratory)
Gastrointestinal Exam
Gastrointestinal Exam: non tender and soft
Neurological Exam
Neurological Exam: alert, oriented x3, no motor deficits, no sensory deficits and speech normal
Course
<MARLENY Jung - Last Filed: 04/30/24 06:04>
Orders/Labs/Results
Orders:
Orders
04/29/24 22:09
ECG [Electrocardiogram (*1)] Urgent
Reason for Study: Tachycardia
04/29/24 22:10
EKG- Treatment ONCE
04/29/24 22:31
Cardiac Monitoring- Treatment ONCE
Diltiazem HCl [Cardizem] 20 mg IV NOW STA
CR Chest Portable - 1 View Urgent
Comment:
Reason For Exam: cp
Reason Study Needs to be Portable: Unable to Transport
Pulse Ox/cont/shift [RESP] Stat
Quantity: 1
04/29/24 22:32
EKG [Electrocardiogram (*1)] Urgent
Reason for Study: Chest Pain
EKG- Treatment ONCE
Diltiazem 125 mg/125 ml Nss [Cardizem] 125 mg in 125 ml IV NOW
Initial dose in mg/hr, then titrate:: 5
Titrate to keep:: Heart rate 80-100 bpm
Titrate by mg/hr:: 5 mg/hr
Frequency of titrations (minutes):: 15
Maximum dose in mg/hr:: 15
04/29/24 22:33
Interrogate Pacemaker- Treatment ONCE
Sotalol [Betapace] 120 mg PO NOW STA
04/29/24 22:36
Complete Blood Count/No Diff Urgent
Comprehensive Metabolic Panel Urgent
D-Dimer Urgent
NT-proBNP Urgent
Troponin I Urgent
04/29/24 22:38
Apixaban [Eliquis] 5 mg PO NOW STA
04/29/24 23:31
Propofol [Diprivan] 20 ml .ROUTE .STK-MED
04/29/24 23:44
Amiodarone [Cordarone] 150 mg Dextrose 5%/Water 100 ml [D5w] 100 ml IV NOW
04/30/24 00:18
EKG [Electrocardiogram (*1)] Urgent
Reason for Study: Atrial Fibrillation
EKG- Treatment ONCE
04/30/24 00:46
COVID-19 Antigen Routine
Source: Nasal Swab
04/30/24 01:56
Troponin I Routine
04/30/24 02:02
Admit/Transfer Patient As Directed
Co-Sign Provider:
Level of Care: Inpatient admission
Assign to:: IVU
Physician / Group: Anam
Diagnosis: A-Fib with RVR
Reason for Hospitalization: A-Fib with RVR
Expected length of stay greater than two midnights?: Yes
ELOS- Estimated Length of Stay in days: 3
I certify the patient meets the requirements for IP care: Yes
PRN Pain Medication Management As Directed
May give lesser potent ordered pain med per pt: Yes
preference::
Protocol:: Medication orders for pain may be administered in a
manner that supports deferring to patient preference
when the pt is:
- Requesting an ordered lesser potent pain medication.
Least to most potent pain medications are defined
as: acetaminophen < NSAID < tramadol < opioids
(morphine, oxycodone, hydromorphone).
- Requesting a lesser dose of the same medication IF
ORDERED.
- Requesting a less intrusive route of administration
if both routes are prescribed by the provider (PO <
IV).
04/30/24 02:04
Code Status As Directed
Resuscitation Status: Full Code
04/30/24 04:00
Acetaminophen [Tylenol] 650 mg PO Q4HPRN PRN
Dextrose 50%-Water [Dextrose 50% Syringe] 12.5 grams IV [id number] PRN
Diltiazem 125 mg/125 ml Nss [Cardizem] 125 mg in 125 ml IV PER PROTOCOL
Currently infusing. Continue current dose and titrate:: Yes
Titrate to keep:: Heart rate 80-100 bpm
Titrate by mg/hr:: 5 mg/hr
Frequency of titrations (minutes):: 15
Maximum dose in mg/hr:: 15
Glucagon [GlucaGen] 1 mg IM PRN PRN
Levalbuterol [Xopenex 0.63 mg Inhalant Solution] 0.63 mg INH R Q6HPRN PRN
Nitroglycerin Sublingual [Nitrostat (Sublingual)] 0.4 mg SL [id number] PRN
04/30/24 04:00
CARDIOLOGY CONSULT Routine
Consulting Provider: Usama Villa
Was physician already notified: Yes
Reason for consult: A-Fib with RVR
Activity As Directed
Activity Level: Bedrest
Bedside Glucose Monitoring As Directed
Frequency: AC&HS
Additional Instructions:: Change to q6h if pt on TPN, tube feeding or not eating
Bladder Scan As Directed
Follow Bladder Retention/Intermittent Cath Algorithm?: Yes
PRN if no void in __ hours: 6
Frequency: Per Retention Algorithm
If Bladder Scan Result >: 400
then:: Straight cath
EKG with chest pain [ECG as needed] As Directed
ECG as needed for:: Chest Pain
I/O [Intake/ Output] As Directed
Frequency: Per unit guidelines
Straight Cath As Directed
Frequency: Per Retention Algorithm
Additional Instructions: straight cath as needed per acute urinary retention algorithm for 24 hrs
Additional Instructions: for bladder scan greater than 400 mL
Vital Signs As Directed
Frequency: Per unit guidelines
Weight As Directed
Frequency: Daily
Xopenex Reason for Use As Directed
Reason for ordering Xopenex instead of Albuterol: Tachycardia
Oxygen Therapy [O2 Therapy] [RESP] Routine
Titrate/Wean O2 to maintain O2 sat greater than (%): 94
04/30/24 04:37
Basic Metabolic Panel IN AM
Complete Blood Count/No Diff IN AM
Glycohemoglobin (HgbA1c) IN AM
TSH Reflex To Free T4 Routine
Troponin I Q6H
04/30/24 06:00
EKG [Electrocardiogram (*1)] IN AM
Reason for Study: Chest Pain
NPO
Allow oral meds: Yes
Allow clear liquids: No
NPO with Ice Chips: No
04/30/24 07:30
Insulin Aspart Corrective Low [Novolog Flexpen-Low Resistance] See Protocol SC AC
04/30/24 08:00
Apixaban [Eliquis] 5 mg PO BID
Aspirin Chewable [Low Strength Aspirin] 81 mg PO BID
Atorvastatin [Lipitor] 80 mg PO DAILY
Carvedilol [Coreg] 25 mg PO BID
Furosemide [Lasix] 20 mg PO DAILY
Pantoprazole [Protonix] 40 mg PO DAILY
04/30/24 10:45
Troponin I Q6H
04/30/24 16:45
Troponin I Q6H
Abnormal Lab Results
04/29/24 04/30/24
22:36 01:56
WBC 13.3 H 10^3/uL
(4.8-10.8)
RBC 4.68 L 10^6/uL
(4.70-6.10)
Hgb 12.5 L g/dL
(13.0-18.0)
MCH 26.7 L pg
(27.0-31.0)
MCHC 31.3 L g/dL
(33.0-37.0)
Carbon Dioxide 31 H mmol/L
(22-30)
Glucose 195 H mg/dl
(70-99)
Troponin I 0.048 H* D ng/ml
04/29/24 22:36
04/29/24 22:36
Vital Signs
Initial and Last Documented VS:
Initial Vital Signs
Temp Pulse Resp Pulse Ox
97.8 F 149 24 96
04/29/24 22:12 04/29/24 22:12 04/29/24 22:12 04/29/24 22:12
Last Documented Vital Signs
Temp Pulse Resp BP Pulse Ox
97.8 F 54 17 130/75 96
04/29/24 22:12 04/30/24 04:00 04/30/24 03:45 04/30/24 03:57 04/30/24 05:32
<Guerline Newton MD - Last Filed: 04/30/24 00:14>
Orders/Labs/Results
Orders:
Orders
04/29/24 22:09
ECG [Electrocardiogram (*1)] Urgent
Reason for Study: Tachycardia
04/29/24 22:10
EKG- Treatment ONCE
04/29/24 22:31
Cardiac Monitoring- Treatment ONCE
Diltiazem HCl [Cardizem] 20 mg IV NOW STA
CR Chest Portable - 1 View Urgent
Comment:
Reason For Exam: cp
Reason Study Needs to be Portable: Unable to Transport
Pulse Ox/cont/shift [RESP] Stat
Quantity: 1
04/29/24 22:32
EKG [Electrocardiogram (*1)] Urgent
Reason for Study: Chest Pain
EKG- Treatment ONCE
Diltiazem 125 mg/125 ml Nss [Cardizem] 125 mg in 125 ml IV NOW
Initial dose in mg/hr, then titrate:: 5
Titrate to keep:: Heart rate 80-100 bpm
Titrate by mg/hr:: 5 mg/hr
Frequency of titrations (minutes):: 15
Maximum dose in mg/hr:: 15
04/29/24 22:33
Interrogate Pacemaker- Treatment ONCE
Sotalol [Betapace] 120 mg PO NOW STA
04/29/24 22:36
Complete Blood Count/No Diff Urgent
Comprehensive Metabolic Panel Urgent
D-Dimer Urgent
NT-proBNP Urgent
Troponin I Urgent
04/29/24 22:38
Apixaban [Eliquis] 5 mg PO NOW STA
04/29/24 23:31
Propofol [Diprivan] 20 ml .ROUTE .STK-MED
04/29/24 23:44
Amiodarone [Cordarone] 150 mg Dextrose 5%/Water 100 ml [D5w] 100 ml IV NOW
04/30/24 00:18
EKG [Electrocardiogram (*1)] Urgent
Reason for Study: Atrial Fibrillation
EKG- Treatment ONCE
04/30/24 00:46
COVID-19 Antigen Routine
Source: Nasal Swab
04/30/24 01:56
Troponin I Routine
04/30/24 02:02
Admit/Transfer Patient As Directed
Co-Sign Provider:
Level of Care: Inpatient admission
Assign to:: IVU
Physician / Group: Anam
Diagnosis: A-Fib with RVR
Reason for Hospitalization: A-Fib with RVR
Expected length of stay greater than two midnights?: Yes
ELOS- Estimated Length of Stay in days: 3
I certify the patient meets the requirements for IP care: Yes
PRN Pain Medication Management As Directed
May give lesser potent ordered pain med per pt: Yes
preference::
Protocol:: Medication orders for pain may be administered in a
manner that supports deferring to patient preference
when the pt is:
- Requesting an ordered lesser potent pain medication.
Least to most potent pain medications are defined
as: acetaminophen < NSAID < tramadol < opioids
(morphine, oxycodone, hydromorphone).
- Requesting a lesser dose of the same medication IF
ORDERED.
- Requesting a less intrusive route of administration
if both routes are prescribed by the provider (PO <
IV).
04/30/24 02:04
Code Status As Directed
Resuscitation Status: Full Code
04/30/24 04:00
Acetaminophen [Tylenol] 650 mg PO Q4HPRN PRN
Dextrose 50%-Water [Dextrose 50% Syringe] 12.5 grams IV Q16SYTI PRN
Diltiazem 125 mg/125 ml Nss [Cardizem] 125 mg in 125 ml IV PER PROTOCOL
Currently infusing. Continue current dose and titrate:: Yes
Titrate to keep:: Heart rate 80-100 bpm
Titrate by mg/hr:: 5 mg/hr
Frequency of titrations (minutes):: 15
Maximum dose in mg/hr:: 15
Glucagon [GlucaGen] 1 mg IM PRN PRN
Levalbuterol [Xopenex 0.63 mg Inhalant Solution] 0.63 mg INH R Q6HPRN PRN
Nitroglycerin Sublingual [Nitrostat (Sublingual)] 0.4 mg SL [id number] PRN
04/30/24 04:00
CARDIOLOGY CONSULT Routine
Consulting Provider: Usama Villa
Was physician already notified: Yes
Reason for consult: A-Fib with RVR
Activity As Directed
Activity Level: Bedrest
Bedside Glucose Monitoring As Directed
Frequency: AC&HS
Additional Instructions:: Change to q6h if pt on TPN, tube feeding or not eating
Bladder Scan As Directed
Follow Bladder Retention/Intermittent Cath Algorithm?: Yes
PRN if no void in __ hours: 6
Frequency: Per Retention Algorithm
If Bladder Scan Result >: 400
then:: Straight cath
EKG with chest pain [ECG as needed] As Directed
ECG as needed for:: Chest Pain
I/O [Intake/ Output] As Directed
Frequency: Per unit guidelines
Straight Cath As Directed
Frequency: Per Retention Algorithm
Additional Instructions: straight cath as needed per acute urinary retention algorithm for 24 hrs
Additional Instructions: for bladder scan greater than 400 mL
Vital Signs As Directed
Frequency: Per unit guidelines
Weight As Directed
Frequency: Daily
Xopenex Reason for Use As Directed
Reason for ordering Xopenex instead of Albuterol: Tachycardia
Oxygen Therapy [O2 Therapy] [RESP] Routine
Titrate/Wean O2 to maintain O2 sat greater than (%): 94
04/30/24 04:37
Basic Metabolic Panel IN AM
Complete Blood Count/No Diff IN AM
Glycohemoglobin (HgbA1c) IN AM
TSH Reflex To Free T4 Routine
Troponin I Q6H
04/30/24 06:00
EKG [Electrocardiogram (*1)] IN AM
Reason for Study: Chest Pain
NPO
Allow oral meds: Yes
Allow clear liquids: No
NPO with Ice Chips: No
04/30/24 07:30
Insulin Aspart Corrective Low [Novolog Flexpen-Low Resistance] See Protocol SC AC
04/30/24 08:00
Apixaban [Eliquis] 5 mg PO BID
Aspirin Chewable [Low Strength Aspirin] 81 mg PO BID
Atorvastatin [Lipitor] 80 mg PO DAILY
Carvedilol [Coreg] 25 mg PO BID
Furosemide [Lasix] 20 mg PO DAILY
Pantoprazole [Protonix] 40 mg PO DAILY
04/30/24 10:45
Troponin I Q6H
04/30/24 16:45
Troponin I Q6H
Abnormal Lab Results
04/29/24 04/30/24
22:36 01:56
WBC 13.3 H 10^3/uL
(4.8-10.8)
RBC 4.68 L 10^6/uL
(4.70-6.10)
Hgb 12.5 L g/dL
(13.0-18.0)
MCH 26.7 L pg
(27.0-31.0)
MCHC 31.3 L g/dL
(33.0-37.0)
Carbon Dioxide 31 H mmol/L
(22-30)
Glucose 195 H mg/dl
(70-99)
Troponin I 0.048 H* D ng/ml
04/29/24 22:36
04/29/24 22:36
Vital Signs
Initial and Last Documented VS:
Initial Vital Signs
Temp Pulse Resp Pulse Ox
97.8 F 149 24 96
04/29/24 22:12 04/29/24 22:12 04/29/24 22:12 04/29/24 22:12
Last Documented Vital Signs
Temp Pulse Resp BP Pulse Ox
97.8 F 54 17 130/75 96
04/29/24 22:12 04/30/24 04:00 04/30/24 03:45 04/30/24 03:57 04/30/24 05:32
<MARLENY Jung - Last Filed: 04/30/24 06:04>
MDM/Problems Addressed
Differential Diagnosis Includes:
Atrial fibrillation, Ventricular fibrillation, Supraventricular tachycardia, Aortic dissection, Pulmonary embolism
Chronic conditions affecting care: DM, HTN, CAD, Arrhythmia and COPD
Acute Exacerbation and/or Progression of Chronic Illness: Arrhythmia
<MARLENY Jung - Last Filed: 04/30/24 06:04>
*Critical Care Note
Total Time (30-74mins, 75-104mins- exclusive of procedures): Not Applicable
ED Attending Note
<MARLENY Jung - Last Filed: 04/30/24 06:04>
-
Portions of this chart may have been created with voice recognition software.� Occasional wrong word or��sound alike� substitutions may have occurred due to the inherent limitations of voice recognition software.
<Guerline Newton MD - Last Filed: 04/30/24 00:14>
ED Attending Note
Patient seen and examined by attending physician: Yes
I performed the substantive portion of visit, reviewed & personally made and approve the management plan that is documented in note by myself or LISA.: Yes
ED Attending Note:
This patient is a 63-year-old male who was just discharged from the hospital on April 21 who presents emergency department with complaints of 'fluttering' that he noticed while he is driving home a few hours ago. This is associated with a
sensation of lightheadedness. Then, shortly before coming here, he developed chest discomfort rated as a 5 out of 10, constant, also noted in the back. It is not ripping or tearing in sensation not abrupt in onset. It is gotten less and he just
notes that it is a 'weird' feeling rather than an actual pain. He also notes dyspnea, and states that he takes nebs 'when I feel like it', denies cough, sore throat, rhinorrhea, fever, chills. Patient denies leg swelling. Patient is compliant
with all his medications, but is due to take his sotalol and anticoagulant tonight. History also obtained from son who was at bedside
On exam, GENERAL: Alert , in no apparent distress
EYE: pupils equal and reactive
NECK: Supple, no significant adenopathy.
ENT: o/p clr, mmm.
CARDIAC: Irregularly irregular, tachycardic
LUNGS: Equal breath sounds bilaterally, no acute respiratory distress,speaks in full sent easily, diffuse wheezing noted, no rales
ABDOMEN: Soft, without focal tenderness, no r/g, no cvat
NEUROLOGICAL: Alert and oriented, no focal neuro deficits
SKIN: Warm and dry, skin intact.
MUSCULOSKELETAL: No edema, well perfused.
PSYCH: Normal and appropriate interaction.
Patient presents to the Emergency Department with __fluttering, cp
Number and Complexity of Problems Addressed at the Encounter
� Chronic conditions affecting care:afib, vt, etc
� Acute Exacerbation and/or Progression of Chronic Illness: afib
� Differential Diagnosis includes:but not limited to pe, dissection, acs, arrhythmia, copd exac, etc etc
Amount and/or Complexity of Data to be Reviewed and Analyzed
� I performed an independent evaluation of and my interpretation is:
EKG:irreg irreg afib wide complex read by me
CT:
Xrays: read by me, cxr nad
Laboratory Studies: D dimer wnl, sl leukocytosis (unclear significance), bnp wnl. (highly doubt hf exac).
Other:
� Review of other/old records reveals: 04/21 visit...was having afib, resolved by discharge, sotalol dose increased to 120 mg bid. Echo 12.5 nl lvf, mild lvh, DD
� Clinical information was obtained by an independent historian:son
� Prescriptions/Medications Considered but not given:
� Further testing considered but not performed:
Risk of Complications and/or Morbidity or Mortality of Patient Management
� Social determinants of health affecting care:
� Discussion with other providers (PCP, Hospitalists, Consultants, etc):
� Escalation of care including admission/observation vs risk of discharge considered: Pads placed on pt, meds given, including diltiz, sotalol, doac, amido at bedside.
11:[address] Dr[address] Villa via [place] text and telephone, ECGs, history, etc. sent to him. Concern is if patient has A-fib with aberrancy versus episodes of V. tach. He will review ECGs that I sent from prior hospitalization.
Reassessment patient still with very mild discomfort, not diaphoretic, overall well-appearing, heart rate in the 120s.
11:30 PM patient continues to describe chest discomfort. Mildly hypoxic at 88%, on nasal cannula with a normal pulse ox at this time. Continue conversation with cardiology and he is on his way in. Consideration for cardioversion versus other
antiarrhythmics weighing risks and benefits. Of note, patient confirms he has not missed any doses of anticoagulation. We are currently setting up for potential cardioversion and procedural sedation.
Multiple repeated bedside reassessments, further conversation with cardiology who is in the car on the way in. Considerations at this time are amiodarone versus cardioversion, each presenting with risks and benefits. At this time, we will give him
a bolus of 150 mL of amiodarone while setting up for cardioversion. Patient and family updated.
Discharge Plan
Departure
Patient Disposition: Admit
Date of Disposition: 04/30/24
Time of Disposition: 00:14
Presentation/result/management discussed w/ accepting MD/DO: Hospitalist
Discharge Problem:
Atrial fibrillation with RVR
Interventions
Interventions:
*Risk Screen - Suicide Last Done: 04/29/24 22:12
*General Assessment Last Done: 04/29/24 23:43
*Neglect/Abuse Screening Last Done: 04/29/24 22:12
ED- Fall Risk Assessment Last Done: 04/29/24 22:54
*ED COVID-19 Vaccine History Last Done: 04/29/24 22:12
*Nursing Disposition Last Done: 04/30/24 04:06
ED- Cardiac Assessment Last Done: 04/29/24 22:54
ED- Pulmonary Assessment Last Done: 04/29/24 22:54
Discharge Date and Time
Discharge Date/Time: 04/30/24 04:00
[2024-04-29] MEDS: ELIQUIS 5 MG PO (22:48)
[2024-04-29] MEDS: BETAPACE 120 MG PO (22:49)
[2024-04-29 22:54] LABS: D-Dimer 0.36 ug/mlFEU (0.00-0.50)
[2024-04-29 22:59] LABS: ALT (SGPT) 12 U/L (0-50); AST (SGOT) 21 U/L (17-59); Albumin 4.3 g/dl (3.5-5.0); Alkaline Phosphatase 103 U/L (38-126); Blood Urea Nitrogen 11 mg/dl (9-20); Calcium 8.7 mg/dl (8.4-10.2); Carbon Dioxide 31 mmol/L (22-30); Chloride 98 mmol/L (98-107); Estimated Creatinine Clearance 86 ml/min; Glucose 195 mg/dl (70-99); Sodium 137 mmol/L (135-145); Total Bilirubin 0.4 mg/dl (0.2-1.3); Total Protein 7.7 g/dl (6.3-8.2); eGFR > 60.00
[2024-04-29 23:07] LABS: NT-proBNP 760 pg/ml; Troponin I < 0.012 ng/ml
[2024-04-30] VITALS (26 sets, daily range): BP systolic 88–176; BP diastolic 53–93; BMI 36.6; BMI 34.4
[2024-04-30] MEDS: CORDARONE 103 MG IV (00:03)
--- NOTE | 2024-04-30 00:21 | CON.CAR ---
Addendum entered and electronically signed by Usama Villa MD 04/30/24 01:34:
hold candesartan and minoxidil
Addendum entered and electronically signed by Usama Villa MD 04/30/24 01:27:
continue with iV cardizem for rate control but will need to monitor BP closely.
will see if he spontanoeously converts like he did last admit. Underlying lung disease and hypoxemia increasee risk for cardioversion.
Ultimately may consider ablation. Respiratory issues will need to be optimized. This can be reviewed with EP
will hold addtional sotolol until reassessemnt of antiarrhythmic plan in AM
Original Note:
Consultation
Consultation Request
Date/Time Consultation Requested: 04/29/2024 at 2300
Date/Time Consultation Performed: 04/29/2024 2300
Requesting Provider: Dr. Newton
Performing Provider: Dr. Villa
Reason for Consultation: Wide-complex tachycardia.
Medical History
-
History of Present Illness:
63-year-old male with history of coronary artery disease previous coronary stenting, recovered cardiomyopathy with ejection fraction 60 to 65%, ventricular tachycardia status post Medtronic ICD recurrent VF 2021 initially managed with amiodarone and
then transition to sotalol due to his history of COPD. Paroxysmal atrial fibrillation, anticoagulation with Eliquis. Patient recently discharged from [facility] earlier this month with recurrent A-fib with RVR converted back to sinus
rhythm sotalol was increased to 120 mg twice daily and patient was discharged patient was feeling well after discharge but then today just noticed he did not feel right funny feeling in his chest similar to what he felt with previous A-fib so also
had some shortness of breath and some hypoxemia in the ER. Feels better on 2 L nasal cannula with adequate oxygenation. No fever or cough he has been compliant with medical therapy including sotalol antecolic coagulation. On arrival to ER he had
wide-complex tachycardia with heart rates in the 130s some irregularity with suspicion for A-fib with a Simpson C although there was some times of patient had accelerated bursa rhythm could not exclude NSVT. Patient given IV Cardizem in ER with
limited limited due to blood pressure.
Past medical history
atrial fibrillation
History of VT
Medtronic single-chamber ICD
Paroxysmal atrial fibrillation
Anticoagulation with Eliquis
COPD
Cardiomyopathy with normal ventricular function by echocardiogram earlier this month
Hypertension
Smoking
Obesity
Past Medical History
Past Medical History: Other (Above)
Social History
Tobacco: Smoker
Personal: Other (Lives with son)
Living: With Family
Family History
Family History: CAD
Allergies / Home Medications
Allergy/AdvReac Type Severity Reaction Status Date / Time
diphenhydramine Allergy hyperactivi Verified 04/29/24 22:11
[Diphenhydramine] ty
sumatriptan Allergy PALPITATIONS, Verified 04/29/24 22:11
HTN
�Medication �Instructions �Recorded �Confirmed �Type
albuterol sulfate 90 mcg/actuation 2 puff inhalation R Q4HPRN PRN sob 09/28/14 04/29/24 History
aerosol inhaler (Ventolin HFA)
carvedilol 25 mg tablet 25 mg PO BID ##60 09/30/14 04/29/24 Rx
furosemide 20 mg tablet 20 mg PO DAILY Fluid 06/11/17 04/29/24 History
Retention/Swelling
nitroglycerin 0.4 mg sublingual 0.4 mg sublingual [id number] PRN 06/12/17 04/29/24 Rx
tablet chest pain #25 tabs
atorvastatin 80 mg tablet 80 mg PO DAILY High Cholesterol 05/15/22 04/29/24 History
apixaban 5 mg tablet (Eliquis) 5 mg PO BID 30 days #60 tabs 05/17/22 04/29/24 Rx
minoxidil 10 mg tablet 20 mg PO BID Blood Pressure 06/06/22 04/29/24 History
fluticasone fur. 100 mcg-umeclid 1 inh inhalation R DAILY 07/04/23 04/29/24 History
62.5 mcg-vilant 25 mcg Lung/Breathing Issues
inhalat.powder (Trelegy Ellipta)
omeprazole 40 mg capsule,delayed 40 mg PO DAILY Gastrointestinal 07/04/23 04/29/24 History
release Issue
butalbital 50 mg-acetaminophen 325 2 cap PO Q4HPRN PRN migraine 07/05/23 04/29/24 History
mg-caffeine 40 mg-codeine 30 mg cap
empagliflozin 25 mg tablet 25 mg PO DAILY Diabetes 07/05/23 04/29/24 History
(Jardiance)
candesartan 32 mg tablet 32 mg PO DAILY Blood Pressure 04/19/24 04/29/24 History
sotalol 120 mg tablet 120 mg PO Q12H 30 days #60 tabs 04/21/24 04/29/24 Rx
aspirin 81 mg chewable tablet 81 mg PO BID 04/29/24 04/29/24 History
(Children's Aspirin)
Review of Systems
-
All other systems: Negative unless noted
Physical Exam
Vital Signs
Temp Pulse Resp BP Pulse Ox
97.8 F 118 17 115/65 96
04/29/24 22:12 04/30/24 00:15 04/30/24 00:15 04/30/24 00:00 04/30/24 00:15
Lab Results
04/29/24 22:36
04/29/24 22:36
Troponin I < 0.012 ng/ml 04/29/24 22:36
Qiy-X-Euucthbszry Pept 760 pg/ml 04/29/24 22:36
Physical Exam
General: Other (Awake alert cooperative no distress appears to be breathing comfortably on nasal cannula eyes pupils are equal)
HEENT: Normocephalic, Anicteric and Other (Eyes pupils are equal)
Respiratory: Other (Faint wheezes bilaterally)
Cardiac: Irregular Rhythm (No murmur rub or gallop auscultated)
GI: Soft, Non Tender, Normal Bowel Sounds, Distended and Other (No masses detected)
Musculoskeletal: No Clubbing, No Cyanosis and No Edema
Skin: Dry
Neuro: Awake and Alert
Psych: Calm (Cooperative)
Impression / Plan
-
Atrial fibrillation.
-Recent hospitalization with A-fib with RVR-
-recurrent A-fib despite sotalol. Will stop sotalol
-Ultimately ablation may be best option for this patient.
May consider discontinuation of sotalol-and short-term use of amiodarone which she had been on in the past but long-term amiodarone does not appear to be a good choice for this patient with underlying lung disease.
-Will see if patient spontaneously converts back to sinus rhythm.
-Continue anticoagulation with Eliquis
-Patient with single-chamber ICD. Heart rate had been in the 50s when in sinus. Will need to monitor rates if patient converts.
.
Coronary artery disease
-abnormal chest sensation most suggestive of A-fib.
-Last catheterization 2021 with patent LAD stent, occluded distal circumflex and no additional obstructive disease.
- First troponin negative. Monitor troponins
-Continue medical therapy
.
ICD. Medtronic single-chamber
.
Shortness of breath/hypoxemia may be related to development of A-fib patient with increased interstitial markings reviewed with radiology possible bronchitis.
-Additional evaluation and treatment as directed by the hospitalist
-Continue treatment of COPD
-Avoid beta agonist
.
NSVT. Patient noted to have NSVT previously. Short burst of wide-complex rhythm noted which may be A-fib with aberrancy versus NSVT
-Patient with ICD
Data Reviewed
-
EKG: Report Reviewed by me
Radiology: Report Reviewed by me
Medical Tests (Nuc Med, Echo etc): Report Reviewed by me
Labs: Discussed with Physician
[2024-04-30 01:09] LABS: COVID-19 Antigen Negative (Negative)
--- NOTE | 2024-04-30 02:08 | HPS.HSE ---
Family Physician
-
Family Physician: Robinson Meadows
Chief Complaint
-
Chest Discomfort
History of Present Illness
Patient is a 63y M with PMH significant for VT, COPD, hypertension and recent admission for A-Fib with RVR who presents to ED complaining of recurrent sensation of 'discomfort' in his chest and back - identical to his recent admission. Pateint
reports feeling somewhat lightheaded / dizzy. Perhaps mildly more SOB than his baseline - but admits to chronic dyspnea due to smoking / COPD. No palpitations per se. No recent cough, fevers / chills, GI or complaints.
Patient was admitted 04/19 - 04/21 for similar presentation. He spontaneously converted to NSR during that hospital stay and was started on Sotalol therapy.
Patient denies any additional changes to his medications since that discharge.
Medical History
Past Medical History
Past Medical History: Reports Other
Additional Past Medical History:
Hypertension
DM-II
History of VT / Arrest
Paroxysmal Atrial Fibrillation
COPD
ASCVD (Carotid disease, CAD)
Past Surgical History: Reports Other
Additional Past Surgical History:
AICD Placement
Cholecystectomy
PTCA with Stent
Umbilical Herniorrhaphy
Foot Surgery
Social History
Tobacco: Smoker (1 pack per day smoker. Total of > 40 pack years.)
Alcohol: Occasional
Drug: None
Living: With Family
Family History
Family History: Not pertinent
Allergies / Home Medications
Allergies reflects when Allergies were last updated in [facility].
Home Medications with original date entered in [facility]
Allergy/Medication List:
Allergies
Allergy/AdvReac Type Severity Reaction Status Date / Time
diphenhydramine Allergy hyperactivi Verified 04/29/24 22:11
[Diphenhydramine] ty
sumatriptan Allergy PALPITATIONS, Verified 04/29/24 22:11
HTN
Home Medications
albuterol sulfate 90 mcg/actuation aerosol inhaler (Ventolin HFA) 2 puff inhalation R Q4HPRN PRN sob 09/28/14
carvedilol 25 mg tablet 25 mg PO BID ##60 09/30/14
furosemide 20 mg tablet 20 mg PO DAILY Fluid Retention/Swelling 06/11/17
nitroglycerin 0.4 mg sublingual tablet 0.4 mg sublingual [id number] PRN chest pain #25 tabs 06/12/17
atorvastatin 80 mg tablet 80 mg PO DAILY High Cholesterol 05/15/22
apixaban 5 mg tablet (Eliquis) 5 mg PO BID 30 days #60 tabs 05/17/22
minoxidil 10 mg tablet 20 mg PO BID Blood Pressure 06/06/22
fluticasone fur. 100 mcg-umeclid 62.5 mcg-vilant 25 mcg inhalat.powder (Trelegy Ellipta) 1 inh inhalation R DAILY Lung/Breathing Issues 07/04/23
omeprazole 40 mg capsule,delayed release 40 mg PO DAILY Gastrointestinal Issue 07/04/23
butalbital 50 mg-acetaminophen 325 mg-caffeine 40 mg-codeine 30 mg cap 2 cap PO Q4HPRN PRN migraine 07/05/23
empagliflozin 25 mg tablet (Jardiance) 25 mg PO DAILY Diabetes 07/05/23
candesartan 32 mg tablet 32 mg PO DAILY Blood Pressure 04/19/24
sotalol 120 mg tablet 120 mg PO Q12H 30 days #60 tabs 04/21/24
aspirin 81 mg chewable tablet (Children's Aspirin) 81 mg PO BID 04/29/24
Review of Systems
-
History Source: Patient
A 12 point ROS was completed and negative except as noted: Yes
Constitutional: Reports Fatigue; Denies Fever or Chills
EENT: Denies Sore Throat
Respiratory: Reports Trouble Breathing; Denies Cough
Cardiac: Reports Chest Pain; Denies Diaphoresis, Palpitations or Syncope
Abdomen/GI: Denies Abdominal Pain, Nausea, Vomiting or Diarrhea
: Denies Dysuria or Frequency
Musculoskeletal: Denies Joint Pain
Neurological: Reports Dizzy; Denies Headache
Psych: Denies Depression or Anxiety
Physical Exam
Vital Signs
Vital Signs
Temp Pulse Resp BP Pulse Ox
97.8 F 128 14 105/71 92
04/29/24 22:12 04/30/24 02:00 04/30/24 02:00 04/30/24 02:00 04/30/24 01:46
Physical Exam
General: Other (63y M in no acute distress.)
HEENT: Moist mucous membranes, PERRLA and Other (Thick neck. Strong carotid pulses. No change in rate / rhythm with carotid massage.)
Respiratory: Other (Scattered squeaks and wheezes. No rales / rhonchi.)
Cardiac: S1/S2, Irregular Rhythm and Tachycardia; No Murmur
GI: Soft, Non Tender, Non Distended and Normal Bowel Sounds
Musculoskeletal: No Clubbing, No Cyanosis and No Edema
Neuro: AO x 3
Laboratory Results
-
04/29/24 22:36
04/29/24 22:36
Laboratory Results
Total Bilirubin 0.4 mg/dl (0.2-1.3) 04/29/24 22:36
AST 21 U/L (17-59) 04/29/24 22:36
ALT 12 U/L (0-50) 04/29/24 22:36
Alkaline Phosphatase 103 U/L (38-126) 04/29/24 22:36
Troponin I < 0.012 ng/ml 04/29/24 22:36
Impression/Plan
-
A/P: Patient is a 63y M with PMH significant for A-Fib, VT, hypertension and COPD who presents to ED complaining of chest discomfort sensation similar to his recent admission for A-Fib.
Atrial Fibrillation with Rapid Ventricular Response
A-Fib with Aberrancy versus NSVT versus other
History of VT s/p AICD Placement
- Admit to IVU for further evaluation and treatment.
- A-Fib with rapid rates - and periods of wide-complex beats c/w NSVT v A-Fib with aberrancy.
- Continue IV diltiazem and titrate as BP allows for improved rate control.
- Received dose of amiodarone in the ED with no clinical change - returned to dilt infusion.
- Cardiology evaluation for additional recommendations.
- Holding sotalol, etc acutely.
- Continue Eliquis for stroke risk reduction.
- Follow for any new / worsening symptoms.
- Check TFTs.
Chronic HFrecEF
- Stable. Patient does not appear grossly volume overloaded on exam.
- Continue usual outpatient Lasix dose as BP allows.
- Follow I/Os, daily weights, etc.
ASCVD
- Presentation with chest 'discomfort' - seems likely due to rhythm / 'palpitations'.
- Initial troponin is undetectable - continue to follow.
- Continue ASA, statin, etc.
Benign Hypertension
- Currently hypotensive given rapid rates / rate controlling meds / etc.
- Hold usual antihypertensive medications acutely.
- Resume gradually if / when necessary and titrate for normotension.
COPD
Tobacco Use Disorder
- Wheezing appreciated on exam likely due to COPD as patient does not appear volume overloaded.
- Continue Trelegy.
- Try Xopenex nebs for now given tachyarrhythmia and follow for improvement.
- May benefit from course of steroid - but will hold off for now as this also may exacerbate his tachycardia.
- Encourage smoking cessation.
DM-II
- Stable. Hold oral medications acutely.
- Follow glucose and cover with SSI as needed.
- Update A1C.
DVT Prophylaxis: On Eliquis
Code Status: Full
[2024-04-30 02:50] LABS: Troponin I 0.048 ng/ml
[2024-04-30 05:01] LABS: Hematocrit 37.1 % (39.0-52.0); Hemoglobin 11.6 g/dL (13.0-18.0); Mean Corp Hgb Conc. 31.3 g/dL (33.0-37.0); Mean Corpuscular Hgb 26.7 pg (27.0-31.0); Mean Corpuscular Volume 85.5 fL (80.0-94.0); Mean Platelet Volume 9.5 fL (7.4-10.4); Platelet Count 258 10^3/uL (130-400); Red Blood Cell Count 4.34 10^6/uL (4.70-6.10); Red Cell Dist. Width 14.5 % (11.5-14.5); White Blood Cell Count 10.9 10^3/uL (4.8-10.8)
[2024-04-30 05:21] LABS: Blood Urea Nitrogen 13 mg/dl (9-20); Calcium 8.4 mg/dl (8.4-10.2); Carbon Dioxide 29 mmol/L (22-30); Chloride 101 mmol/L (98-107); Estimated Creatinine Clearance 79 ml/min; Glucose 108 mg/dl (70-99); Potassium 4.4 mmol/L (3.5-5.1); Sodium 139 mmol/L (135-145); eGFR > 60.00
[2024-04-30 05:33] LABS: Troponin I 0.103 ng/ml
--- NOTE | 2024-04-30 05:37 | PTCARENOTE ---
Received pt from ER into 2246. AAOx3 SB on the monitor. VSS. Pt was instructed on IVU policies. EKG and labs drawn. Call ibarra within reach
[2024-04-30 05:50] LABS: TSH Reflex To Free T4 1.19 uIU/ml (0.47-4.68)
[2024-04-30] MEDS: SYMBICORT 80/4.5 MCG INHALER 2 PUFF INH ×2 (07:39→19:43)
[2024-04-30] MEDS: SPIRIVA RESPIMAT 2.5 MCG 2 PUFF INH (07:39)
[2024-04-30] MEDS: LOW STRENGTH ASPIRIN 81 MG PO ×2 (08:36→19:22)
[2024-04-30] MEDS: PROTONIX 40 MG PO (08:36)
[2024-04-30] MEDS: LIPITOR 80 MG PO (08:36)
[2024-04-30] MEDS: ELIQUIS 5 MG PO ×2 (08:36→19:22)
[2024-04-30 08:43] LABS: Glucose - Point of Care 115 mg/dl (70-99)
[2024-04-30] MEDS: LASIX 20 MG PO (08:43)
[2024-04-30] MEDS: COREG 25 MG PO ×2 (08:43→19:21)
[2024-04-30 08:47] LABS: Glycohemoglobin (HgbA1c) 6.7 % (4.0-5.6)
[2024-04-30] MEDS: CORDARONE 518 MG IV (10:15)
[2024-04-30 11:37] LABS: Glucose - Point of Care 120 mg/dl (70-99)
[2024-04-30 11:52] LABS: Troponin I 0.226 ng/ml
--- NOTE | 2024-04-30 15:46 | PTCARENOTE ---
Pt received this am in SB, rate in the 50's. Pt denies any chest pain, sob or lightheadedness. OOB to the bathroom, gait steady. IV amiodarone infusing as ordered.
[2024-04-30 16:40] LABS: Glucose - Point of Care 126 mg/dl (70-99)
[2024-04-30 19:22] LABS: Troponin I 0.167 ng/ml
[2024-04-30] MEDS: XOPENEX 0.63 MG INHALANT SOLUTION INH (19:46)
[2024-04-30 23:09] LABS: Glucose - Point of Care 141 mg/dl (70-99)
[2024-05-01] VITALS (7 sets, daily range): BP systolic 135–196; BP diastolic 64–92; BMI 34.3
--- NOTE | 2024-05-01 | PTCARENOTE ---
Pt. received at change of shift. Pt. AOx3. Tele reading Sinus Randy, amiodarone running at 16.7mL/hr per order. Handoff completed with previous RN. RN verbalizes plan of care to pt. Pt verbalizes understanding. Call ibarra within reach. Continuing to
monitor at this time.
[2024-05-01] MEDS: XOPENEX 0.63 MG INHALANT SOLUTION INH (01:33)
[2024-05-01] MEDS: APRESOLINE 5 MG IV (03:21)
[2024-05-01] MEDS: LASIX 20 MG IV (04:18)
[2024-05-01] MEDS: SPIRIVA RESPIMAT 2.5 MCG 2 PUFF INH (07:46)
[2024-05-01] MEDS: SYMBICORT 80/4.5 MCG INHALER 2 PUFF INH (07:47)
[2024-05-01 08:38] LABS: Glucose - Point of Care 146 mg/dl (70-99)
[2024-05-01] MEDS: PROTONIX 40 MG PO (08:44)
[2024-05-01] MEDS: LOW STRENGTH ASPIRIN 81 MG PO (08:44)
[2024-05-01] MEDS: LIPITOR 80 MG PO (08:44)
[2024-05-01] MEDS: ELIQUIS 5 MG PO (08:44)
[2024-05-01] MEDS: COREG 25 MG PO (08:47)
[2024-05-01] MEDS: LASIX 20 MG PO (08:47)
--- NOTE | 2024-05-01 09:26 | W.PN.CD ---
Today's Communication / Plan
-
Amiodarone 400 mg p.o. twice daily through follow-up visit on 05/13/2024 with Phylicia Bourne at 1040 in her [facility] office.
Resume minoxidil and candesartan at typical doses.
Resume daily Lasix dosing, I stressed the importance of daily weights at home.
Okay for discharge from cardiovascular perspective.
Impression / Plan
-
Atrial fibrillation.
-Recent hospitalization with A-fib with RVR despite recent increase of sotalol dosing.-
- Back in NSR
-Decision to transition sotalol to amiodarone will transition to p.o. after 24-hour IV drip.
-Start Amiodarone 40mg po bid and continue until follow up 05/13/24 10:40 with Phylicia Lopez when dose can be adjusted
-This will be a temporizing measure as may ultimately hope to proceed to ablation.
-Continue anticoagulation with Eliquis
.
Non-CT troponin elevation in the setting of tachyarrhythmia with known underlying CAD (occluded circumflex)
Peak 0.2 to, no further intervention planned.
.
Coronary artery disease
-abnormal chest sensation most suggestive of A-fib.
-Last catheterization 2021 with patent LAD stent, occluded distal circumflex and no additional obstructive disease.
.
ICD. Medtronic single-chamber
.
Heart failure with recovered EF, acute on chronic
-He does not appear volume overloaded on exam, did receive an extra dose of lasix and neb overnight for sob.
-cotninue current lasix dosing
-Stressed compliance with home plan of daily weights.
-GDMT as tolerated
-Trend daily weight, I/O, and BMP
HTN:
-Typical home doses of candesartan and minoxidil held yesterday for transient hypotension now hypertensive.
-Will resume typical dosing
VT - history of prior arest . patient with ICD. Some periods of wide complex rhyhtm c/w afib with aberrancy but also had some possible NSVT.
-sotalol transitioned to Amiodarone
continue tx above
Subjective:
He is feeling much better, was short of breath last night asked for nebulizer was also given a dose of Lasix with good relief. He is feeling much better and would like to go home.
Physical Exam
Vital Signs/Labs
Vital Signs
Temp Pulse Resp BP Pulse Ox
99.4 F 71 20 172/79 97
05/01/24 07:22 05/01/24 04:18 05/01/24 07:22 05/01/24 04:18 05/01/24 07:22
04/30/24 05/01/24 05/02/24
06:59 06:59 06:59
Actual Weight 105.7 kg 105.3 kg
04/30/24 04:37
04/30/24 04:37
04/29/24
22:36
Hqr-A-Bjvillthzng Pept 760
LAB Results
04/29/24 04/30/24 04/30/24
22:36 01:56 04:37
Troponin I < 0.012 0.048 H* D 0.103 H* D
04/30/24 04/30/24
11:19 18:08
Troponin I 0.226 H* D 0.167 H* D
Physical Exam
Cardiovascular: Rhythm & rate is regular, Pedal edema is absent, JVD pressure is normal, Systolic murmur absent and Diastolic murmur absent
Respiratory: Respiratory effort normal, Wheeze Present and Crackles Present (mild at bases)
Neuro/Psych: AO x 3
Data Reviewed
-
Date of Service: May 01, 2024
Medical Decision Making: Test Interpretation and Review of Case with other Provider (Dr. Hilton, okay to go home on amiodarone, resumption of candesartan and minoxidil. Close follow-up arranged.)
EKG: Tracing Personally Visualized and interpreted
[2024-05-01] MEDS: ATACAND 32 MG PO (11:19)
[2024-05-01] MEDS: LONITEN 20 MG PO (11:19)
[2024-05-01] MEDS: PACERONE 400 MG PO (11:19)
--- NOTE | 2024-05-01 12:05 | W.PN.HOSP.TC ---
Today's Communication/Plan
-
dc home
no sotatolol
continue amio 400mg BID until seen by outpatietn cardiology
sleep medicine referall provided
More than 30 minutes spent in discharge including
Final examination of the patient
Summarizing hospital stay
Instructions for continuing care to all relevant caregivers
Preparation of discharge records, prescriptions, and referral forms
Total time spent (in minutes): 33mins
Assessment / Plan
Assessment / Plan
afib with rvr
-stop sotolol
-transition amio gtt to po amio 400mg bid
-continue eliquis
-outpt cardiology follow up on 05/13
-may be a candidate for ablation
htn
-resume minoxadil and candersartan
hld
-continue statin
dm
-ssi
-accucheck
-ccdiet
-continue jardiance when dc
gerd
-continue ppi
copd
-continue mdi's
cleared by cards for dc home
Anticipated Discharge: Today
Subjective/Interval History
-
Date of Service: May 01, 2024
seen and exmained
remianed in sinus rhyhm
wants to go home
Objective Data
-
Vital Signs:
Vital Signs
Temp Pulse Resp BP Pulse Ox
99.4 F 60 20 135/64 96
05/01/24 07:22 05/01/24 11:30 05/01/24 07:22 05/01/24 11:22 05/01/24 08:00
I&O
04/30/24 05/01/24 05/02/24
06:59 06:59 06:59
Output Total 700 / 700
Balance -700 / -700
Physical Exam
-
General: Well Developed, Well Nourished and No Apparent Distress
HEENT: Normocephalic, Atraumatic and Moist Mucous Membranes
Respiratory: Clear to Auscultation
Cardiac: Regular Rhythm and S1/S2
Breast: Deferred by me
GI: Soft, Nontender, Nondistended and Normal Bowel Sounds
Rectal: Deferred by Provider
Musculoskeletal: No Clubbing, No Cyanosis and No Edema
Skin: Warm and Dry
Neuro: Awake, Alert, Oriented and AO x 3
Psych: Calm
--- NOTE | 2024-05-01 12:33 | W.DCSUMMARY ---
Discharge Summary
Discharge Data
Date of Admission: 04/30/24
Date of Discharge: 05/01/24
-
Pending Results: No
Hospital Course
63y M with PMH significant for VT, COPD, hypertension and recent admission for A-Fib with RVR
Presented with chest and back discomfort with associated lightheadedness/dizziness with slight more sob. On arrival to the ED found to have wide complex tachycardia with some irregularity, cardiology called believed to be atrial fibrillation and
therefore started on amiodarone drip with the recommendation to discontinue sotalol due to recurrence of atrial fibrillation. He eventually spontaneously converted to sinus rhythm and was recommended to continue amiodarone 400mg twice a day until
seen by outpatient cardiology Phylicia Bourne on 05/13 at 1040am in her [facility] office. Continue eliquis. Please check daily weight, bp and hr and keep these readings in a log to review with cardiology.
STOP Sotalol
Start Amiodarone 400mg Twice a day (200mg Two tabs twice a day) until seen by outpatient cardiology
Will provide a script to sleep medicine, likely component of sleep apnea
Discharge Plan
-
Patient Disposition: Home (Routine Discharge)
Discharge Diagnosis/Procedures: Atrial fibrillation
Condition: Good
Diet: As tolerated
Activity: As tolerated
Referrals:
Usama Villa MD [Active] - 05/13/24
Robinson Meadows MD [Family Provider] -
Mehdi Downey MD [Active] - in two to three weeks (sleep medicine)
Additional Discharge Medication Instructions: Presented with chest and back discomfort with associated lightheadedness/dizziness with slight more sob. On arrival to the ED found to have wide complex tachycardia with some irregularity, cardiology
called believed to be atrial fibrillation and therefore started on amiodarone drip with the recommendation to discontinue sotalol due to recurrence of atrial fibrillation. He eventually spontaneously converted to sinus rhythm and was recommended to
continue amiodarone 400mg twice a day until seen by outpatient cardiology Phylicia Bourne on 05/13 at 1040am in her [facility] office. Continue eliquis. Please check daily weight, bp and hr and keep these readings in a log to review with cardiology.
STOP Sotalol
Start Amiodarone 400mg Twice a day (200mg Two tabs twice a day) until seen by outpatient cardiology
Will provide a script to sleep medicine, likely component of sleep apnea
Prescriptions:
New
amiodarone 200 mg Tablet
400 mg PO BID Qty: 64 0RF
Continued
albuterol sulfate [Ventolin HFA] 90 MCG/PUFF HFA aerosol inhaler
2 puff inhalation R Q4HPRN PRN (Reason: sob)
carvedilol 25 MG tablet
25 mg PO BID Qty: 60 3RF
furosemide 20 MG tablet
20 mg PO DAILY
nitroglycerin 0.4 MG tablet, sublingual
0.4 mg sublingual [id number] PRN (Reason: chest pain) Qty: 25 2RF
atorvastatin 80 MG tablet
80 mg PO DAILY
Eliquis 5 mg Tablet
5 mg PO BID 30 Days Qty: 60 0RF
minoxidil 10 mg Tablet
20 mg PO BID
omeprazole 40 mg Capsule,Delayed Release(Dr/Ec)
40 mg PO DAILY
Trelegy Ellipta 100-62.5-25 mcg Blister With Device
1 inh INHALATION R DAILY
tcincviqpx-fkhohundgx-iqo-cod 20-997-14-30 mg Capsule
2 cap PO Q4HPRN PRN (Reason: migraine)
Patient Comments:
1-2 capsules every 4 hours as needed
Jardiance 25 mg Tablet
25 mg PO DAILY
candesartan 32 mg Tablet
32 mg PO DAILY
aspirin [Children's Aspirin] 81 mg tablet,chewable
81 mg PO BID
Discontinued
sotalol 120 mg Tablet
120 mg PO Q12H 30 Days Qty: 60 0RF
Discharge Orders:
Discharge Patient (As Directed); Ordered 05/01/24
Ordered By: Anish Hilton
Discharge Date and Time
Print Language: KYRGYZ
[2024-05-01 12:36] LABS: Glucose - Point of Care 116 mg/dl (70-99)
--- NOTE | 2024-05-01 13:37 | PTCARENOTE ---
Pt received this am in SR - SB, rate in the 50's to 60's. Pt denies any pain, sob or lightheadedness. IV amio infusing as ordered. Pt later started on po amio and discharged to home. Discharge instructions given and reviewed with good understanding.
== END 2024-05-01 13:40 | disposition home or self-care (01) | DRG 308 ==
LOC: IVU 02:37
PROVIDERS: ADMITTING PHYSICIAN Hospitalist; ATTENDING PHYSICIAN Hospitalist; CONSULT PHYSICIAN Internal Medicine Cardiovascular Disease; EMERGENCY PHYSICIAN Emergency Medicine; FAMILY PHYSICIAN Internal Medicine
DX: I48.0 Paroxysmal atrial fibrillation (principal); I50.33 Acute on chronic diastolic (congestive) heart failure; I11.0 Hypertensive heart disease with heart failure; I47.20 Ventricular tachycardia, unspecified; G47.30 Sleep apnea, unspecified; J44.9 Chronic obstructive pulmonary disease, unspecified; Z79.899 Other long term (current) drug therapy; Z79.01 Long term (current) use of anticoagulants; G43.709 Chronic migraine without aura, not intractable, without status migrainosus; Z79.84 Long term (current) use of oral hypoglycemic drugs; Z79.82 Long term (current) use of aspirin; Z95.810 Presence of automatic (implantable) cardiac defibrillator; Z95.5 Presence of coronary angioplasty implant and graft; E66.9 Obesity, unspecified; Z68.34 Body mass index [BMI] 34.0-34.9, adult; E11.9 Type 2 diabetes mellitus without complications; E78.00 Pure hypercholesterolemia, unspecified; F17.210 Nicotine dependence, cigarettes, uncomplicated; I25.10 Atherosclerotic heart disease of native coronary artery without angina pectoris; I25.2 Old myocardial infarction; K21.9 Gastro-esophageal reflux disease without esophagitis; Z11.52 Encounter for screening for COVID-19
CPT/HCPCS: 71045; 80048; 80053; 82962; 83036; 83880; 84443; 84484; 85027; 85379; 87811; 93005; 94640; 94760; 96365; 96366; 96375; 99285

== ENCOUNTER 2024-05-02 15:07 | Emergency (ER) | payer MEDICARE, OTHER, SELFPAY ==
[2024-05-02 15:13] VITALS: BP 165/66
--- NOTE | 2024-05-02 15:15 | ED.GENMED ---
ED Provider Triage
<Cristin Osorio PAPER COLORER - Last Filed: 05/02/24 15:18>
-
Patient seen by provider in Triage?: Seen in Triage
Attestation: A medical screening examination has been initiated by a qualified medical provider. Based on the assessment performed at this time, it has been determined that an emergent medical condition may exist and the patient has been informed
that further medical evaluation and possible additional diagnostic testing may be needed.
HPI: 63-year-old male just discharged from hospital having pain and redness in the right antecubital area/elbow area, history of DVT and on Eliquis
GENERAL: Alert , in no apparent distress
EYE: No visual abnormalities.
NECK: Trachea midline
ENT: No visible abnormalities.
LUNGS: No acute respiratory distress
NEUROLOGICAL: Alert and oriented
SKIN: Skin intact. No visible changes.
MUSCULOSKELETAL: Moving extremities normally
PSYCH: Normal and appropriate interaction.
This is a medical evaluation conducted in person to initiate diagnostic evaluation and provide initial therapeutics. Please see further documentation by the treating clinician.
History of Present Illness
<Cristin Osorio PAPER COLORER - Last Filed: 05/02/24 15:18>
General
Chief Complaint: DVT/Possible Blood Clot
Time Seen by Provider: 05/02/24 16:56
<Td Burk PA-C - Last Filed: 05/02/24 23:56>
History of Present Illness
History of Present Illness:
63-year-old male presents to the emergency department for evaluation of redness swelling and pain to the right medial elbow at the site of a recent IV insertion. Recently admitted for A-fib. On Eliquis. No distal arm swelling
Past History
<Cristin Osorio PAPER COLORER - Last Filed: 05/02/24 15:18>
Past History
ED Past Medical History: Arrthythmia (A-fib, ventricular tachycardia), CAD, COPD, GERD, HTN, Hypercholesterolemia, NIDDM, [place] (2008, 2015) and Other (Migraine headaches, tobacco abuse, ventricular tachycardia)
ED Past Surgical History: Cardiac (PTCA with stent to the LAD 2007, PACER) and Orthopedic (Right foot surgery 2016)
Patient has exhibited threatening behavior?: No
Social History
Tobacco: Smoker
Alcohol: None
Drug: Narcotics (inconsistent UDS (+)oxycodone 2014)
Personal:
Living: with family
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
Family History
Family History: Hypertension and Early CAD
Review of Systems
<Td Burk PA-C - Last Filed: 05/02/24 23:56>
Review of Systems
Allergies reviewed?: Yes
All Other Systems: ROS reviewed and negative except as documented in HPI and ROS
Phy Exam
<Td Burk PA-C - Last Filed: 05/02/24 23:56>
Physical Exam
Physical Exam:
GEN: Well appearing, NAD, WDWN
HEENT: Oral mucosa moist, no scleral icterus
Cardiac: Regular rate
Lung: No respiratory distress, no tachypnea
MSK: Mild erythema and swelling to the right medial antecubital fossa associated with a recent IV site, no arm edema
Skin: Good color, no pallor or jaundice, no rashes
Neuro: AO x3, moves all extremities freely
Psych: Calm, cooperative
Course
<Cristin Osorio, PAPER COLORER - Last Filed: 05/02/24 15:18>
Orders/Labs/Results
Orders:
Orders
05/02/24 15:17
US Periph Venous UPPER Ext RT Urgent
Comment:
Reason For Exam: pain, red, hard at prev iV site on Eliquis
Vital Signs
Initial and Last Documented VS:
Initial Vital Signs
Temp Pulse Resp BP Pulse Ox
98.3 F 57 18 165/66 97
05/02/24 15:13 05/02/24 15:13 05/02/24 15:13 05/02/24 15:13 05/02/24 15:13
Last Documented Vital Signs
Temp Pulse Resp BP Pulse Ox
97.8 F 59 16 148/68 96
05/02/24 17:25 05/02/24 17:25 05/02/24 17:25 05/02/24 17:25 05/02/24 17:25
<Td Burk PA-C - Last Filed: 05/02/24 23:56>
Orders/Labs/Results
Orders:
Orders
05/02/24 15:17
US Periph Venous UPPER Ext RT Urgent
Comment:
Reason For Exam: pain, red, hard at prev iV site on Eliquis
Vital Signs
Initial and Last Documented VS:
Initial Vital Signs
Temp Pulse Resp BP Pulse Ox
98.3 F 57 18 165/66 97
05/02/24 15:13 05/02/24 15:13 05/02/24 15:13 05/02/24 15:13 05/02/24 15:13
Last Documented Vital Signs
Temp Pulse Resp BP Pulse Ox
97.8 F 59 16 148/68 96
05/02/24 17:25 05/02/24 17:25 05/02/24 17:25 05/02/24 17:25 05/02/24 17:25
<Td Burk PA-C - Last Filed: 05/02/24 23:56>
MDM/Problems Addressed
MDM/Problems Addressed:
Superficial thrombophlebitis secondary to recent IV placement. No indication for alteration of his anticoagulation therapy, recommend warm compresses and topical NSAIDs
<Td Burk PA-C - Last Filed: 05/02/24 23:56>
*Critical Care Note
Total Time (30-74mins, 75-104mins- exclusive of procedures): Not Applicable
ED Attending Note
<Crsitin Osorio NP - Last Filed: 05/02/24 15:18>
-
Portions of this chart may have been created with voice recognition software.� Occasional wrong word or��sound alike� substitutions may have occurred due to the inherent limitations of voice recognition software.
Discharge Plan
Departure
Patient Disposition: Home (Routine Discharge)
Date of Disposition: 05/02/24
Time of Disposition: 17:11
Patient with high blood pressure during this ER visit?: No
Discharge Problem:
Superficial thrombophlebitis of right upper extremity
Instructions: Superficial vein phlebitis and thrombosis
Prescriptions:
No Action
albuterol sulfate [Ventolin HFA] 90 MCG/PUFF HFA aerosol inhaler
2 puff inhalation R Q4HPRN PRN (Reason: sob)
carvedilol 25 MG tablet
25 mg PO BID Qty: 60 3RF
furosemide 20 MG tablet
20 mg PO DAILY
nitroglycerin 0.4 MG tablet, sublingual
0.4 mg sublingual [id number] PRN (Reason: chest pain) Qty: 25 2RF
atorvastatin 80 MG tablet
80 mg PO DAILY
Eliquis 5 mg Tablet
5 mg PO BID 30 Days Qty: 60 0RF
minoxidil 10 mg Tablet
20 mg PO BID
omeprazole 40 mg Capsule,Delayed Release(Dr/Ec)
40 mg PO DAILY
Trelegy Ellipta 100-62.5-25 mcg Blister With Device
1 inh INHALATION R DAILY
azxrisgojn-fnjctjkydl-rue-cod [id number] mg Capsule
2 cap PO Q4HPRN PRN (Reason: migraine)
Patient Comments:
1-2 capsules every 4 hours as needed
Jardiance 25 mg Tablet
25 mg PO DAILY
candesartan 32 mg Tablet
32 mg PO DAILY
amiodarone 200 mg Tablet
400 mg PO BID Qty: 64 0RF
aspirin [Children's Aspirin] 81 mg tablet,chewable
81 mg PO DAILY Qty: 0 0RF
Activity Restrictions/Additional Instructions:
Warm compresses 3-5 times daily
If arm pain and swelling increases, have your primary doctor send you for a repeat ultrasound in 2 weeks
Interventions
Interventions:
*Risk Screen - Suicide Last Done: 05/02/24 17:10
*General Assessment Last Done: 05/02/24 15:13
*Neglect/Abuse Screening Last Done: 05/02/24 17:10
ED- Fall Risk Assessment Last Done: 05/02/24 17:04
*ED COVID-19 Vaccine History Last Done: 05/02/24 17:04
*Nursing Disposition Last Done: 05/02/24 17:25
ED- Cardiac Assessment Last Done: 05/02/24 17:04
ED- Pulmonary Assessment Last Done: 05/02/24 17:04
ED-Peripheral Vascular Assessment Last Done: 05/02/24 17:04
ED-Skin Assessment Last Done: 05/02/24 17:04
Discharge Date and Time
Print Language: ARMENIAN
[2024-05-02 17:04] VITALS: BMI 33.8
[2024-05-02 17:10] VITALS: BP 148/68
--- NOTE | 2024-05-02 17:24 | EDRN ---
Discharge instructions given to patient by Dannie Burk PA-C.
[2024-05-02 17:25] VITALS: BP 148/68
== END 2024-05-02 17:25 | disposition home or self-care (01) ==
LOC: EMR 15:07
PROVIDERS: EMERGENCY PHYSICIAN Emergency Medicine; FAMILY PHYSICIAN Internal Medicine
DX: I80.8 Phlebitis and thrombophlebitis of other sites (principal); Z86.718 Personal history of other venous thrombosis and embolism; Z79.01 Long term (current) use of anticoagulants; F17.200 Nicotine dependence, unspecified, uncomplicated
CPT/HCPCS: 99284; 93971

== ENCOUNTER → 2024-06-13 05:51 | Day surgery (SDC) | payer MEDICARE, OTHER, SELFPAY ==
[2024-06-08 10:47] VITALS: BMI 34.9
[2024-06-13] VITALS (12 sets, daily range): BP systolic 113–160; BP diastolic 47–66; BMI 35.1
[2024-06-13 06:47] LABS: Glucose - Point of Care 119 mg/dl (70-99)
[2024-06-13 08:46] LABS: ACT-LR - POC 316 Seconds (116-155)
[2024-06-13 09:09] LABS: ACT-LR - POC 353 Seconds (116-155)
[2024-06-13 09:15] LABS: Glucose - Point of Care 116 mg/dl (70-99)
[2024-06-13 09:30] LABS: ACT-LR - POC 314 Seconds (116-155)
[2024-06-13 11:05] LABS: Glucose - Point of Care 137 mg/dl (70-99)
--- NOTE | 2024-06-13 12:02 | ITS.CL.ABL ---
[employer] - Ablation
Ablation
Procedure Report:
AFIB ablation:
Mr. Ramos is a very pleasant 63 yr old gentleman with symptomatic paroxysmal AF, is recommended for atrial fibrillation ablation.
Date of the Procedure:
06/13/2024
Indications:
Paroxysmal atrial fibrillation
Pre-Operative Diagnosis:
Paroxysmal atrial fibrillation
Post-Operative Diagnosis:
Paroxysmal atrial fibrillation
Procedure Performed:
Atrial fibrillation ablation with Pulsed-Field approach for pulmonary vein isolation
Performing Physician:
Lucian Gorman MD
Assistants:
EP staff
Anesthesia:
See anesthesia records
Detailed Description of the Procedure:
Written informed consent was obtained from the patient after a full explanation of the risks and benefits of the procedure including the risks of sedation and anesthesia.
The patient was brought to the electrophysiology laboratory in stable condition in fasting state. Continuous electrocardiographic and hemodynamic monitoring was initiated.
The initial rhythm was sinus.
Device Interrogation:
Patient has Medtronic ICD in place. The device was interrogated at the start of the case. The device and the lead was working normally. The tachy-therapies monitoring and interventions were suspended before the start of the case. The multimedia programmer
remained connected in the room throughout the procedure.
At the end of the case the device was reprogrammed to normal functioning at the previous settings. All therapies are resumed and ICD was armed before patient left the procedure room.
The procedure site was meticulously prepared with surgical scrub and allowed to dry with no pooling. Sterile draping was applied to cover the procedure site. The image intensifier was draped with sterile bag and positioned over the patient. After
infusion of local anesthetic, vascular access was obtained under ultrasound guidance and sheaths were placed over guide wire as detailed below.
Sheath and Catheter Placement:
The following catheters / sheaths were placed
Sheaths:
��������� 17Fr steerable sheath (Faradrive�, FlexEnergy) in right femoral
��������� 10Fr in right femoral vein
Catheters:
��������� BRODERICK HD Grid mapping catheter � at locations of RA, LA
��������� Farawave� PFA catheter
��������� ICE catheter �Fernando ViewFlex - at locations of RA, SVC, and RV.
Heparin was infused.
Intracardiac ECHO:
An 8-Qatari AcuNav intracardiac ECHO (ICE) probe was advanced through the 9-Qatari sheath in the right femoral vein into the right atrium under fluoroscopic and ICE ultrasound image guidance and a baseline ECHO study was performed. The left atrial
size was normal. There was moderate tricuspid regurgitation. The aortic valve was grossly normal. There was borderline normal left ventricular systolic functions. There is small pericardial effusion. All the five veins were identified and has flow
identified. There was good flow noted in the NEO.
During the procedure, ICE was used for monitoring of complications, guidance of trans-septal puncture, monitor the catheter position and tracking ablation lesions. No change in the pericardial space noted throughout the procedure.
Trans-septal Puncture:
Heparin was initiated and infused to maintain appropriate ACT. A pigtail guidewire was advanced through the 8-Qatari sheath in the right femoral vein into the superior vena cava under fluoroscopic and ICE guidance. The 9-Qatari sheath was exchanged
for a Faradrive sheath which was advanced into the superior vena cava. A transseptal RF pigtail via Faradrive connect system was utilized to perform the trans-septal puncture. The apparatus was withdrawn until it was in contact with the fossa
ovalis. The position was adjusted based on fluoroscopy and ultrasound images from ICE. Under fluoroscopic, hemodynamic and ICE ultrasound guidance, left atrium was cannulated by applying RF energy. Once atrial septum was cannulated, the pigtail wire
was advanced through the needle into the left atrium. The guide wire was advanced into the left superior pulmonary vein. Both the sheath and the dilator was advanced into the left atrium. The dilator with the needle was withdrawn. Blood was
aspirated from the Faradrive sheath and arterial blood confirmed. The sheath was flushed. Saline injection noted into the left atrium on ICE. The mapping catheter was advanced in the sheath into the left pulmonary vein. Left atrial pressure was
measured.
3D Electroanatomic Mapping:
Using the HD Grid catheter advanced through sheath into the left atrium, an electroanatomic map (EAM) of the left atrium was created using Plink Search BRODERICK mapping system. The map was used for localization of catheter position and tacking of ablation
lesions.
The EAM of the left atrium showed 5 pulmonary veins (3 right sided and 2 left sided) with all veins electrically connected to the body the LA. It showed normal voltage on the posterior and anterior wall of the LA. The LA was mildly dilated in size.
Following the EAM, preparation were made for ablation.
Ablation:
Ablation # 1: Pulmonary vein Isolation:
Glycopyrrolate 0.2 mg was given prior to the placement of ablation. Using [employer] pulsed wave ablation system, pulmonary vein isolation was achieved. First the ablation catheter was placed in the LSPV and ostial ablation lesions were performed in a
counter clock chávez approach all around the PV ostium circumferentially. Then the catheter was placed on the antral location and multiple ablation lesions were placed circumferentially on the antrum of the vein.
In the similar fashion, the LIPV were isolated.
Then the catheter was moved to right sided veins. The ostial and antral ablations were placed as noted above.
EPS and Confirmation of the PVI and bidirectional block:
Following achievement of entrance block at the pulmonary veins, pacing from the HD catheter in each of the four veins at 10 milliamps for 2 milliseconds showed entrance and exit block. All PVI were rechecked at the end of the case and remained
isolated. Entrance and exit block were demonstrated in all veins.
Post ablation Electroanatomic mapping:
Once ablation was completed, the EAM of the LA was done again in sinus rhythm with excellent demarcation of LA myocardium and isolated antral tissue. There was no significant scarring noted in the LA.
The NEO had healthy signals and was not isolated.
Procedure End
ICE study was done again that showed no epicardial accumulation. No complications noted.
Following the completion of the EP study, catheters were removed.
The sheaths were removed and hemostasis achieved with promaine 40 mg and Figure of 8 Suture along with manual compression after acceptable ACT is achieved.
Left atrial Pressure:
Mean LA pressure was 17 mmHg.
Mean RA pressure was 11mmHg
Estimated Blood loss:
<10 cc
Specimens Removed:
None.
Implants / Devices:
None
Urine output:
None
Packs / Drains/ Tubes:
None
Instrument / Sponge Count Correct:
Yes
Complications of the Procedure:
None
Condition of Patient at Time of Transfer:
Hemodynamically stable with no neurological or vascular compromise.
Summary:
Successful atrial fibrillation ablation with Pulsed Field approach for pulmonary vein isolation.
Figures from the Procedure:
Figure 1: The electroanatomic mapping (EAM) of the left atrium with bipolar voltage (purple indicates normal electrical activity with viera as no myocardial muscle electric activity indicating a line of block or scar.
--- NOTE | 2024-06-13 15:35 | W.PN.UPDATE ---
Update Note
Progress Note Update
Pt seen post PFA. Right groin site without ht/bleeding. OOB ambulating, urinating without difficulty. Post EKG NSR 70s, NSSTT abn laterally, no change from prior EKGs. Pt is chronic heavy smoker and refuses to quit. His SaO2 were high 80s without O2
both pre and post op, but does rise with coughing/deep breathing. Once he was able to sit up, SaO2 were low 90s. This is likely baseline for him and he was encouraged to followup with pcp and take inhalers as instructed.
Resume eliquis tonight at usual time. Decrease amiodarone to 200mg daily, starting in AM 06/14. Followup at [facility] arranged. Home today if groin site/tele remain stable.
== END | disposition home or self-care (01) ==
LOC: CATH 05:51
PROVIDERS: ATTENDING PHYSICIAN Internal Medicine Cardiovascular Disease; FAMILY PHYSICIAN Internal Medicine
DX: I48.0 Paroxysmal atrial fibrillation (principal); Z95.810 Presence of automatic (implantable) cardiac defibrillator; Z79.84 Long term (current) use of oral hypoglycemic drugs; Z79.01 Long term (current) use of anticoagulants; Z79.82 Long term (current) use of aspirin; Z79.899 Other long term (current) drug therapy
CPT/HCPCS: C1732; C1894; C1892; C1759; 82962; 85347; 93005; 93656; C1733; C1766

== ENCOUNTER 2025-03-26 18:55 | Emergency (ER) | payer MEDICARE, OTHER, SELFPAY ==
[2025-03-26 18:58] VITALS: BP 202/96
[2025-03-26 19:23] LABS: Hematocrit 39.9 % (39.0-52.0); Hemoglobin 12.7 g/dL (13.0-18.0); Mean Corp Hgb Conc. 31.8 g/dL (33.0-37.0); Mean Corpuscular Volume 83.0 fL (80.0-94.0); Nucleated Red Blood Cells % 0 % (-); Platelet Count 270 10^3/uL (130-400); Red Cell Dist. Width 14.4 % (11.5-14.5)
[2025-03-26 19:35] LABS: AST (SGOT) 19 U/L (17-59); Albumin 4.4 g/dl (3.5-5.0); Blood Urea Nitrogen 10 mg/dl (9-20); Calcium 8.8 mg/dl (8.4-10.2); Carbon Dioxide 32 mmol/L (22-30); Chloride 96 mmol/L (98-107); Glucose 110 mg/dl (70-99); Total Protein 8.7 g/dl (6.3-8.2); eGFR > 60.00
[2025-03-26 19:46] LABS: ALT (SGPT) 10 U/L (0-50); Alkaline Phosphatase 102 U/L (38-126); Potassium 4.8 mmol/L (3.5-5.1); Sodium 133 mmol/L (135-145)
[2025-03-26 20:20] VITALS: BP 182/66
--- NOTE | 2025-03-26 20:58 | ED.GENMED ---
History of Present Illness
General
Chief Complaint: Headache
Source: patient and family
Time Seen by Provider: 03/26/25 20:47
History of Present Illness
History of Present Illness:
64-year-old male presents to the emergency room complaining of headache. Patient states he has a history of migraine headaches. He gets frequent migraines. He typically takes Fioricet with codeine. He took 3 today without much improvement.
After he took a fourth he began to have nausea and vomiting. The nausea vomiting made his headache worse. No weakness numbness or tingling. He describes this as a typical migraine for him. Patient states when he comes to the hospital the only 2
things at work are a nausea medicine and Dilaudid. He is allergic to Benadryl because it causes him to feel hyperactive and itchy.
Past History
Past History
ED Past Medical History: Arrthythmia (A-fib, ventricular tachycardia), CAD, COPD, GERD, HTN, Hypercholesterolemia, NIDDM, [place] (2008, 2014) and Other (Migraine headaches, tobacco abuse, ventricular tachycardia)
ED Past Surgical History: Cardiac (PTCA with stent to the LAD 2007, PACER) and Orthopedic (Right foot surgery 2016)
Patient has exhibited threatening behavior?: No
Social History
Tobacco: Smoker
Alcohol: None
Drug: Narcotics (inconsistent UDS (+)oxycodone 2014)
Personal:
Living: with family
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
Family History
Family History: Hypertension and Early CAD
Phy Exam
Physical Exam
Physical Exam:
General: Awake, Alert, Oriented X3. No acute distress. Appears somewhat uncomfortable due to headache
Vitals: unremarkable
Head: Atraumatic
Eyes: Pupils equal, EOMI
Throat: Airway intact, no exudates
Neck: Trachea midline
Lungs: Clear and equal b/l
Heart: Regular rate, no murmurs
Abd: Soft, Nontender, No pulsatile mass
Neuro: Cranial nerves intact, muscle strength equal bilaterally, cerebellar exam normal
Skin: Warm, dry, no rash
Extremities: pulses equal b/l, no edema
Course
Orders/Labs/Results
Orders:
Orders
03/26/25 19:05
Complete Blood Count/With Diff Urgent
Comprehensive Metabolic Panel Urgent
03/26/25 20:35
EKG [Electrocardiogram (*1)] Urgent
Reason for Study: Shortness of Breath
03/26/25 20:36
EKG- Treatment ONCE
03/26/25 20:57
0.9% Sodium Chloride 500 ml [Nss] 500 ml IV BOLUS
Prochlorperazine [Compazine] 10 mg IV NOW STA
03/26/25 21:24
Ipratropium/Albuterol Sulfate [Duoneb] 3 ml INH R NOW STA
03/26/25 22:25
CR Chest - 2 Views Urgent
Comment:
Reason For Exam: sob
03/26/25 22:55
Furosemide [Lasix] 40 mg IV NOW STA
Abnormal Lab Results
03/26/25
19:05
Hgb 12.7 L g/dL
(13.0-18.0)
MCH 26.4 L pg
(27.0-31.0)
MCHC 31.8 L g/dL
(33.0-37.0)
Absolute Monos (auto) 0.9 H 10^3/uL
(0.1-0.6)
Monocytes % 13.8 H %
(1.7-9.3)
Eosinophils % 10.3 H %
(0-6)
Sodium 133 L mmol/L
(135-145)
Chloride 96 L mmol/L
(98-107)
Carbon Dioxide 32 H mmol/L
(22-30)
Glucose 110 H mg/dl
(70-99)
Total Protein 8.7 H g/dl
(6.3-8.2)
03/26/25 19:05
03/26/25 19:05
Vital Signs
Initial and Last Documented VS:
Initial Vital Signs
Temp Pulse Resp BP Pulse Ox
98.2 F 62 18 202/96 93
03/26/25 18:58 03/26/25 18:58 03/26/25 18:58 03/26/25 18:58 03/26/25 18:58
Last Documented Vital Signs
Temp Pulse Resp BP Pulse Ox
98.2 F 56 11 129/71 87
03/26/25 18:58 03/26/25 22:15 03/26/25 22:15 03/26/25 22:08 03/26/25 22:15
MDM/Problems Addressed
Differential Diagnosis Includes:
Exacerbation of migraines, electrolyte abnormality, COPD exacerbation, CHF exacerbation
MDM/Problems Addressed:
Patient presents with headache. He believes the headache is a migraine headache as he has had many. Patient resolution of his headache with Compazine. Patient noted to be somewhat hypoxic at times. He has wheezing and some crackles on exam. He
felt a little bit better after neb treatment. Physical exam also noted 1+ edema of his lower extremities. Chest x-ray shows mild increased interstitial changes perhaps he has some mild amount of heart failure. Patient does not want to stay in the
hospital. Will give him a dose of IV Lasix and have him follow-up with cardiology as an outpatient.
Chronic conditions affecting care: HTN and Other (Migraine headache)
*Radiology
Radiology exam reviewed: preliminary read by ED provider (Mild increase in interstitial markings)
*Pulse Oximetry
SaO2: 91
Oxygen Mode of Delivery: Room air
Patient hypoxic: yes
*EKG
Interpreted by ED Provider?: Yes
Heart Rate: 69
Rate: normal
Rhythm: sinus and PVC's
Interval: other (borderline qt)
*Critical Care Note
Total Time (30-74mins, 75-104mins- exclusive of procedures): Not Applicable
ED Attending Note
-
Portions of this chart may have been created with voice recognition software.� Occasional wrong word or��sound alike� substitutions may have occurred due to the inherent limitations of voice recognition software.
Discharge Plan
Departure
Patient Disposition: Home (Routine Discharge)
Date of Disposition: 03/26/25
Time of Disposition: 22:57
Patient with high blood pressure during this ER visit?: No
Condition: Good
Discharge Problem:
Headache, migraine, CHF (congestive heart failure), COPD (chronic obstructive pulmonary disease)
Instructions: Migraines (DC), *CBC Heart Failure Instructions
Prescriptions:
No Action
albuterol sulfate [Ventolin HFA] 90 MCG/PUFF HFA aerosol inhaler
2 puff inhalation R Q4HPRN PRN (Reason: sob)
carvedilol 25 MG tablet
25 mg PO BID Qty: 60 3RF
furosemide 20 MG tablet
20 mg PO DAILY
nitroglycerin 0.4 MG tablet, sublingual
0.4 mg sublingual [id number] PRN (Reason: chest pain) Qty: 25 2RF
atorvastatin 80 MG tablet
80 mg PO DAILY
Eliquis 5 mg Tablet
5 mg PO BID 30 Days Qty: 60 0RF
minoxidil 10 mg Tablet
20 mg PO BID
omeprazole 40 mg Capsule,Delayed Release(Dr/Ec)
40 mg PO DAILY
Trelegy Ellipta 100-62.5-25 mcg Blister With Device
1 inh INHALATION R DAILY
ulhbhifwvn-akdxifmxjb-qsg-cod [id number] mg Capsule
1 - 2 cap PO Q4HPRN PRN (Reason: migraine)
Jardiance 25 mg Tablet
25 mg PO DAILY
candesartan 32 mg Tablet
32 mg PO DAILY
aspirin [Children's Aspirin] 81 mg tablet,chewable
81 mg PO QPM
amiodarone 200 mg tablet
200 mg PO DAILY Qty: 0 0RF
Referrals:
Robinson Meadows MD [Family Provider, Internal Medicine]
Activity Restrictions/Additional Instructions:
Monitor weights on a daily basis. Return to the emergency room if you feel like you are becoming more short of breath.
Interventions
Interventions:
*Risk Screen - Suicide Last Done: 03/26/25 18:58
*General Assessment Last Done: 03/26/25 20:27
*Neglect/Abuse Screening Last Done: 03/26/25 20:25
*ED- Fall Risk Assessment Last Done: 03/26/25 20:25
*ED COVID-19 Vaccine History Last Done: 03/26/25 20:25
*ED Influenza Vaccine History Last Done: 03/26/25 20:25
ED- Neurological Assessment Last Done: 03/26/25 20:25
Discharge Date and Time
Print Language: GAMBIAN
[2025-03-26 21:09] VITALS: BP 167/68
[2025-03-26] MEDS: COMPAZINE 10 MG IV (21:09)
[2025-03-26] MEDS: NSS 500 IV (21:09)
[2025-03-26] MEDS: DUONEB 3 ML INH (21:28)
[2025-03-26 22:08] VITALS: BP 129/71
[2025-03-26] MEDS: LASIX 40 MG IV (23:11)
[2025-03-26 23:29] VITALS: BP 129/71
== END 2025-03-26 23:34 | disposition home or self-care (01) ==
LOC: EMR 18:55
PROVIDERS: EMERGENCY PHYSICIAN Emergency Medicine; FAMILY PHYSICIAN Internal Medicine
DX: G43.909 Migraine, unspecified, not intractable, without status migrainosus (principal); I11.0 Hypertensive heart disease with heart failure; I50.9 Heart failure, unspecified; J44.9 Chronic obstructive pulmonary disease, unspecified; I49.3 Ventricular premature depolarization; E11.9 Type 2 diabetes mellitus without complications; I25.10 Atherosclerotic heart disease of native coronary artery without angina pectoris; I48.91 Unspecified atrial fibrillation; E78.00 Pure hypercholesterolemia, unspecified; I25.2 Old myocardial infarction; K21.9 Gastro-esophageal reflux disease without esophagitis; F17.200 Nicotine dependence, unspecified, uncomplicated; Z79.01 Long term (current) use of anticoagulants; Z79.84 Long term (current) use of oral hypoglycemic drugs; Z79.82 Long term (current) use of aspirin; Z95.5 Presence of coronary angioplasty implant and graft; Z95.0 Presence of cardiac pacemaker; Z88.8 Allergy status to other drugs, medicaments and biological substances; Z82.49 Family history of ischemic heart disease and other diseases of the circulatory system
CPT/HCPCS: 99284; 96374; 96375; 94640; 71046; 80053; 85025; 93005